=== PATIENT | male | born 1970 | race Caucasian/White ===

== ENCOUNTER 2017-05-18 02:31 | Emergency (ER) | payer OTHER ==
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
[2017-05-18 03:37] VITALS: BP 132/66
== END 2017-05-18 03:37 | disposition home or self-care (01) ==
LOC: ED 02:31
DX: S39.91XA Unspecified injury of abdomen, initial encounter (principal); Y04.0XXA Assault by unarmed brawl or fight, initial encounter; E11.9 Type 2 diabetes mellitus without complications
CPT/HCPCS: 1040M; 99283

== ENCOUNTER 2017-06-06 07:14 | Inpatient (IN) | payer OTHER ==
[2017-06-06] MEDS ORDERED: SODIUM CHLORIDE 0.9% 1,000 ML IV ONE ×5 (07:38→17:19)
[2017-06-06 07:59] LABS: BASOPHILS % (AUTO) 0.3 %; EOSINOPHILS # (AUTO) 0.1 10^3/uL (0.0-0.7); HGB - HEMOGLOBIN 13.8 g/dL (14.0-18.0); LYMPHOCYTES # (AUTO) 1.9 10^3/uL (1.5-3.5); MEAN CORPUSCULAR HEMOGLOBIN 28.6 pg (27.0-31.0); MEAN CORPUSCULAR HGB CONC 34.6 g/dL (32.0-36.0); MEAN CORPUSCULAR VOLUME 82.6 fL (80.0-94.0); MEAN PLATELET VOLUME 8.1 fL (7.4-11.4); MONOCYTES # (AUTO) 0.5 10^3/uL (0.0-1.0); MONOCYTES % (AUTO) 3.8 %; NEUTROPHILS % (AUTO) 79.9 %; RED BLOOD COUNT 4.84 10^6/uL (4.70-6.10); RED CELL DISTRIBUTION WIDTH 13.2 % (12.0-15.0); UNCORRECTED WHITE BLOOD COUNT 12.6 x10^3/uL; WHITE BLOOD COUNT 12.6 x10^3/uL (4.8-10.8)
[2017-06-06 08:08] LABS: ALBUMIN/GLOBULIN RATIO 1.1 (1.0-2.2); BILIRUBIN,TOTAL 0.7 mg/dL (0.2-1.0); CALCIUM 9.9 mg/dL (8.5-10.3); CREATININE 4.5 mg/dL (0.6-1.2); POTASSIUM 3.4 mmol/L (3.5-5.0); TOTAL PROTEIN 8.7 g/dL (6.7-8.2)
--- NOTE | 2017-06-06 08:17 | ED Physician Documentation ---
PD HPI NVD - Stated complaint Stated Complaint: VOMITING - Chief complaint Chief Complaint: General - History obtained from History obtained from: Patient, Family - History of Present Illness Timing - onset: How many days ago (3) Timing - duration: Days (3) Timing - details: Gradual onset, Still present Associated symptoms: Dizzy, Near syncope / syncope Contributing factors: Diabetes Improved by: Vomiting Similar symptoms before: No diagnosis Recently seen: Not recently seen - Additonal information Additional information: 46-year-old male diabetic on insulin pump has developed acute dizziness with vertigo and nausea and vomiting. He has developed a lot of vomiting and is now weak on his feet.He had a similar episode about 2 weeks ago which passed spontaneously. He notes that he has not had any urine output since Friday.He does not have pain and he does not have diarrhea. Review of Systems Constitutional: reports: Fatigue. denies: Fever, Chills, Myalgias Eyes: reports: Other (visual disturbance with the dizziness.). denies: Decreased vision Ears: denies: Ear pain Nose: denies: Rhinorrhea / runny nose, Congestion Throat: reports: Sore throat Cardiac: denies: Palpitations Respiratory: reports: Cough. denies: Dyspnea GI: reports: Nausea, Vomiting. denies: Abdominal Pain, Constipation, Diarrhea : reports: Unable to Void Skin: denies: Rash Musculoskeletal: denies: Neck pain, Back pain, Extremity pain Neurologic: reports: Generalized weakness, Near syncope. denies: Focal weakness , Numbness PD PAST MEDICAL HISTORY - Past Medical History Endocrine/Autoimmune: Type 1 diabetes - Past Surgical History Past Surgical History: Yes General: Hiatal hernia repair HEENT: Myringotomy (tubes), Tonsil/Adenoidectomy - Present Medications Home Medications: Ambulatory Orders Medication Instructions Recorded Confirmed Gabapentin 100 mg PO BID 11/07/15 06/06/17 Aspirin [Aspirin EC] 81 mg PO DAILY 06/06/17 06/06/17 Atorvastatin Calcium 20 mg PO QPM 06/06/17 06/06/17 Insulin Aspart (Vial) [NovoLOG 0 unit SUBQ .INSULINPUMP 06/06/17 06/06/17 (VIAL FOR ED USE)] Levothyroxine Sodium [Synthroid] 200 mcg PO QDAC 06/06/17 06/06/17 Lisinopril [Zestril] 20 mg PO DAILY 06/06/17 06/06/17 - Allergies Allergies/Adverse Reactions: Allergies Allergy/AdvReac Type Severity Reaction Status Date / Time meperidine HCl * Allergy Unknown Verified 05/18/17 02:35 [From Demerol] - Social History Does the pt smoke?: No Smoking Status: Never smoker Does the pt drink ETOH?: No Does the pt have substance abuse?: No - Immunizations Immunizations are current?: Yes - POLST Patient has POLST: No PD ED PE NORMAL - Vitals Vital signs reviewed: Yes (hypotensive) - General General: Alert and oriented X 3, No acute distress, Well developed/nourished - HEENT HEENT: Atraumatic, PERRL, EOMI, Ears normal, Moist mucous membranes, Other ( There are 3 beats of nystagmus to the right and 2 to the left. ) - Neck Neck: Supple, no meningeal sign, No bony TTP - Cardiac Cardiac: RRR, No murmur - Respiratory Respiratory: No respiratory distress, Clear bilaterally - Abdomen Abdomen: Soft, Non tender - Derm Derm: Normal color, Warm and dry, No rash - Extremities Extremities: No deformity, No edema - Neuro Neuro: No motor deficit, No sensory deficit - Psych Psych: Normal mood, Normal affect Results - Vitals Vitals: Vital Signs - 24 hr 06/06/17 06/06/17 06/06/17 07:26 08:31 09:31 Temperature 36.5 C Heart Rate 90 84 82 Heart Rate [ Sitting] Heart Rate [ Standing] Heart Rate [ Supine] Respiratory 16 18 18 Rate Blood Pressure 87/60 L 102/62 93/49 L Blood Pressure [Sitting] Blood Pressure [Standing] Blood Pressure [Supine] O2 Saturation 99 100 98 06/06/17 06/06/17 09:43 10:43 Temperature Heart Rate 72 Heart Rate [ 86 Sitting] Heart Rate [ 98 Standing] Heart Rate [ 82 Supine] Respiratory 18 Rate Blood Pressure 93/55 L Blood Pressure 82/52 L [Sitting] Blood Pressure 67/47 L [Standing] Blood Pressure 95/61 [Supine] O2 Saturation 98 Oxygen O2 Source Room air - EKG (time done) 0748 Rate: Rate (enter#) (85) Rhythm: NSR Ischemia: Normal ST segments Compare to prior EKG: Old EKG unavailable Computer interpretation: Agree with computer - Labs Labs: Laboratory Tests 06/06/17 06/06/17 06/06/17 07:35 07:39 07:39 WBC 12.6 H RBC 4.84 Hgb 13.8 L Hct 40.0 L MCV 82.6 MCH 28.6 MCHC 34.6 RDW 13.2 Plt Count 359 MPV 8.1 Neut # 10.0 H Lymph # 1.9 [place] # 0.5 Eos # 0.1 Baso # 0.0 Absolute Nucleated RBC 0.00 Nucleated RBCs 0.0 Sodium 137 Potassium 3.4 L Chloride 93 L Carbon Dioxide 31 Anion Gap 13.0 BUN 39 H Creatinine 4.5 H Estimated GFR (MDRD) 14 L Glucose 241 H POC Whole Bld Glucose 237 H Glycated Hemoglobin Estim Average Glucose Lactic Acid Calcium 9.9 Phosphorus Magnesium Total Bilirubin 0.7 AST 20 ALT 18 Alkaline Phosphatase 88 Troponin I Total Protein 8.7 H Albumin 4.6 Globulin 4.1 Albumin/Globulin Ratio 1.1 Lipase 10 L Serum Ketones 06/06/17 06/06/17 06/06/17 07:39 07:39 07:39 WBC RBC Hgb Hct MCV MCH MCHC RDW Plt Count MPV Neut # Lymph # [place] # Eos # Baso # Absolute Nucleated RBC Nucleated RBCs Sodium Potassium Chloride Carbon Dioxide Anion Gap BUN Creatinine Estimated GFR (MDRD) Glucose POC Whole Bld Glucose Glycated Hemoglobin 13.4 H Estim Average Glucose 338 H Lactic Acid Calcium Phosphorus Magnesium Total Bilirubin AST ALT Alkaline Phosphatase Troponin I < 0.04 Total Protein Albumin Globulin Albumin/Globulin Ratio Lipase Serum Ketones NEGATIVE 06/06/17 06/06/17 07:39 07:49 WBC RBC Hgb Hct MCV MCH MCHC RDW Plt Count MPV Neut # Lymph # [place] # Eos # Baso # Absolute Nucleated RBC Nucleated RBCs Sodium Potassium Chloride Carbon Dioxide Anion Gap BUN Creatinine Estimated GFR (MDRD) Glucose POC Whole Bld Glucose Glycated Hemoglobin Estim Average Glucose Lactic Acid 2.0 Calcium Phosphorus 3.0 Magnesium 2.1 Total Bilirubin AST ALT Alkaline Phosphatase Troponin I Total Protein Albumin Globulin Albumin/Globulin Ratio Lipase Serum Ketones Procedures - IVC sono (time) 0824 Bedside IVC sono: IVC measures (cm) (1.02), IVC collapsed c insp (cm) (complete) , Dehydration (after one liter bolus) PD MEDICAL DECISION MAKING - ED course Complexity details: reviewed old records, reviewed results, re-evaluated patient , considered differential, d/w patient, d/w family ED course: 46-year-old male with insulin-dependent diabetes mellitus on an insulin pump has developed dehydration and on evaluation of his laboratory studies it does appear he has acute renal failure as well. His numbers do not appear to be just simply dehydration as a result of his diabetes but dehydration as well as renal failure. He has not had any urine output for 2 days. Here in the emergency department he is hydrated and he is admitted to the hospital for further hydration and evaluation of his kidney function. He does not require dialysis at this point. Departure - Departure Disposition: 66 [facility] DC/Xfer Clinical Impression: Dehydration Diabetes mellitus out of control Qualifiers: Diabetes mellitus type: type 2 Diabetes mellitus complication status: with kidney complications Diabetes mellitus complication detail: with other kidney complication Diabetes mellitus assisted insulin use: with admissions nurse use Qualified Code(s): E11.29 - Type 2 diabetes mellitus with other diabetic kidney complication Renal failure, acute Qualifiers: Acute renal failure type: unspecified Qualified Code(s): N17.9 - Acute kidney failure, unspecified Discharge Date/Time: 06/06/17 13:14
[2017-06-06] MEDS ORDERED: MECLIZINE 12.5 MG TABLET PO STA (08:18)
[2017-06-06] MEDS ORDERED: MECLIZINE 12.5 MG TABLET PO ONE (08:23)
[2017-06-06 10:24] LABS: HEMOGLOBIN A1C 1.88 g/dL
[2017-06-06] MEDS ORDERED: HYDROcod/ACETAM 5/325 MG TABLET PO PRN (11:40)
[2017-06-06] MEDS ORDERED: ACETAMINOPHEN 325 MG TABLET PO PRN (11:40)
[2017-06-06] MEDS ORDERED: ONDANSETRON ODT 4 MG TABLET TL PRN (11:40)
[2017-06-06] MEDS ORDERED: SODIUM CHLORIDE FLUSH 0.9% 10 ML SYRINGE IVP PRN (11:40)
[2017-06-06] MEDS ORDERED: PROCHLORPERAZINE 10 MG/2 ML VIAL IVP PRN (11:40)
[2017-06-06 11:44] LABS: MAGNESIUM 2.1 mg/dL (1.7-2.8)
[2017-06-06] MEDS ORDERED: METOCLOPRAMIDE 10 MG/2 ML VIAL IVP PRN (11:49)
[2017-06-06 12:20] LABS: URIC ACID 8.5 mg/dL (2.6-7.2)
[2017-06-06 12:28] LABS: HEMOGLOBIN A1C 1.49 g/dL
[2017-06-06] MEDS: SODIUM CHLORIDE FLUSH 0.9% 10 ML SYRINGE IVP SCH ×2 (13:41→20:02)
[2017-06-06 13:42] LABS: VBG PH 7.374 (7.31-7.41)
[2017-06-06 13:43] LABS: VBG BASE EXCESS -1.4 mmol/L (-2 - +2); VBG TOTAL CO2 25.1 mmol/L (24-29)
[2017-06-06 13:44] LABS: VBG OXYGEN SATURATION 72.4 % (60-80)
[2017-06-06] MEDS: DOXYCYCLINE INJ 100 MG in SODIUM CHLORIDE 0.9% MINIBAG 100 ML IV SCH ×2 (14:12→22:01)
--- NOTE | 2017-06-06 14:12 | HISTORY & PHYSICAL EXAMINATION ---
Chief Complaint - Chief Complaint Chief Complaint: Nausea, vomiting and anurea History of Present Illness - Admitted From Admitted From:: emergency department - History Obtained From Records Reviewed: yes History obtained from: patient Exam Limitations: none - History of Present Illness HPI Comment/Other: Patient is a very pleasant 46-year-old gentleman with a past medical history significant for type I.5 diabetes, Jose's thyroiditis with hypothyroidism, hyperlipidemia and peripheral neuropathy who presents to the emergency department with a chief complaint of nausea, vomiting and anuria. The patient states that symptoms started 2 days ago prior to that he states he was in his normal state of health. He states that 2 days ago he began feeling nauseous and began vomiting. The patient states that since then he's been unable to keep anything down and has had decreased appetite and poor oral intake. The patient states that he also noted that he has voided for the last 2 days. The patient denies any abdominal pain, fevers or chills. He does admit to having cough for the last 2 days but denies any shortness of air, orthopnea, increased lower extremity swelling. The patient admits that about a week ago he noticed a ulcer on his left foot. He states that this is the first time that he's ever noted a blister or ulcer on his foot since being diagnosed with diabetes. He states that initially it was an ulcer just on his fourth toe of the left foot but then he began having ulceration also on the fifth toe. Patient states that he's been placing bandages on the toes. He believes that one of the toes is improving but the other continues to have drainage and erythema. He states that he has peripheral neuropathy and therefore does not have very much sensation in the toes. He denies any fevers or chills. He states previously his diabetes was well controlled however over the last few months he's been having a lot of stress and has not done a very good job with his diabetes. Patient does use a insulin pump and states he changes it every 3 days. The patient denies any history of renal disease. He does state that he was told that he has protein in his urine and that's why he was started on lisinopril but this was years ago. The patient denies any NSAID use or recent antibiotic use. He also denies any new medications. He states that he has not been able to keep his lisinopril down the last 2 days. He denies any headaches, blurred vision, runny nose, sore throat, nasal congestion or chest pain. On presentation to the emergency department the patient was afebrile, was not tachycardic and was not in any respiratory distress however the patient was hypotensive. The patient's blood pressure on presentation was 87/60 and despite fluids remained borderline low. The patient was given 2 L of IV fluid in the emergency department but did not make any urine. The patient's lab test revealed a creatinine of 4.5 with a BUN of only 39. The patient did have a leukocytosis of 12.9. Patient was not acidotic on his VBG, and he was not hyperkalemic and did not appear uremic on presentation. The patient did undergo a renal ultrasound in the emergency department which revealed no renal artery stenosis and no hydronephrosis. The patient was admitted to the [facility] for acute renal failure with anuria. Review of Systems - Other Findings Other Findings: A comprehensive review of systems was performed the pertinent positives and negatives are stated above in the HPI and the remainder of the review of systems is negative. History - Past Medical History Cardiovascular: reports: None Respiratory: reports: None Neuro: reports: None, Peripheral neuropathy Endocrine/Autoimmune: reports: Type 1 diabetes GI: reports: None : reports: None HEENT: reports: None Psych: reports: None Musculoskeletal: reports: None Derm: reports: None MRSA Hx?: No Other Past Medical History: 1. Type I.5 diabetes on an insulin pump. 2. Jose's thyroiditis with hypothyroidism. 3. Peripheral neuropathy. 4. Diabetic foot ulcers. 5. Hyperlipidemia - Past Surgical History General: reports: Hiatal hernia repair Ortho: reports: Rotator cuff repair, Arthroscopic surgery HEENT: reports: Myringotomy (tubes), Tonsil/Adenoidectomy - Family & Social History Family History: Mother: Diabetes, Type 1 (son with diabetes), Father: Alive and Well, Other family: Diabetes, Type 1 Living arrangement: At home Living Situation: With spouse/s.o. Social History Notes: Patient is originally from [facility]. 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 The patient is and lives with his . He has 3 children. Patient does not smoke he does not drink or use any illicit drugs. - Substance History Use: Uses substance without health or social issues: NONE Abuse: Recurrent use of substance despite neg consequences: NONE Dependence: Experiences withdrawal or developed tolerances: NONE - POLST Patient has POLST: No POLST Status: Full Code Meds/Allgy - Home Medications Home Medications: Ambulatory Orders Medication Instructions Recorded Confirmed Gabapentin 100 mg PO BID 11/07/15 06/06/17 Aspirin [Aspirin EC] 81 mg PO DAILY 06/06/17 06/06/17 Atorvastatin Calcium 20 mg PO QPM 06/06/17 06/06/17 Insulin Aspart (Vial) [NovoLOG 0 unit SUBQ .INSULINPUMP 06/06/17 06/06/17 (VIAL FOR ED USE)] Levothyroxine Sodium [Synthroid] 200 mcg PO QDAC 06/06/17 06/06/17 Lisinopril [Zestril] 20 mg PO DAILY 06/06/17 06/06/17 - Allergies Allergies/Adverse Reactions: Allergies Allergy/AdvReac Type Severity Reaction Status Date / Time meperidine HCl * Allergy Unknown Verified 05/18/17 02:35 [From Demerol] Exam - Vital Signs Reviewed Vital Signs: Yes Vital Signs: Vital Signs x48h Temp Pulse Pulse Resp BP BP Pulse Ox 06/06/17 13:24 36.7 C 84 16 101/68 99 06/06/17 11:49 74 10 L 97/56 L - Physical Exam General Appearance: positive: No acute distress, Alert Eyes Bilateral: positive: Normal inspection, PERRL, EOMI, No lid inflammation, Conjunctivae nml, No scleral icterus ENT: positive: ENT inspection nml, Pharynx nml, Dry mucous membranes. negative : Purulent nasal drainage, Pharyngeal erythema, Oral lesions Neck: positive: Nml inspection, Thyroid nml, No JVD, Trachea midline. negative : Lymphadenopathy (R), Lymphadenopathy (L), Carotid bruit, Tracheal deviation Respiratory: positive: Chest non-tender, No respiratory distress, Breath sounds nml. negative: Wheezes, Rales, Rhonchi Cardiovascular: positive: Regular rate & rhythm, No murmur, No gallop Peripheral Pulses: positive: 2+ Abdomen: positive: Non-tender, No organomegaly, Nml bowel sounds, No distention. negative: Guarding, Rebound, Hepatomegaly Back: positive: Nml inspection. negative: CVA tenderness (R), CVA tenderness (L ) Skin: positive: Color nml, No rash, Dry, Other (erythema, drainage and swelling of the left fourth and fifth toes). negative: Cyanosis, Pallor Extremities: positive: Non-tender, Full ROM, Nml appearance, No pedal edema, Other (Left fifth toe with open ulcer, surrounding erythema and decreased sensation. Left fourth toe with healing ulceration. Healing ulcer of the big toe.) Neurologic/Psychiatric: positive: Oriented x3, CN's nml (2-12), Motor nml, Sensation nml, Mood/affect nml Conclusion/Plan - Problem List (1) Anuria Conclusion/Plan: The patient presented with anuria for 2 days along with nausea, vomiting and poor oral intake. Patient has no known history of renal disease. The patient was hypotensive on presentation with elevated creatinine of 4.5 with no previous baseline creatinine for comparison. After receiving 2 L of fluid in the emergency department the patient did not have any urine output. Patient did not have any hyperkalemia, acidosis, pulmonary edema or uremia. Patient's anuria appears likely to be secondary to acute kidney injury likely secondary to severe dehydration. Plan: We will give patient IV fluids aggressively and continue to monitor for urine output. Renal ultrasound did not reveal any hydronephrosis or any evidence of obstruction. If patient is not make urine in the next [address] a Pierre catheter. If patient is not making urine in the next 24 hours and creatinine continues to be elevated patient will need to be transferred for nephrology consultation. (2) DAGOBERTO (acute kidney injury) Conclusion/Plan: We do not have a baseline creatinine on the patient the patient appears to have acute renal failure. Patient's creatinine on presentation was 4.5. Patient appears to be dehydrated and has been having nausea and vomiting for the last 2 days. The patient also has poor oral intake. This appears to be prerenal azotemia although the patient's BUN is not significantly elevated. Patient is not have any indications for dialysis at this point as he does not have any electrolyte abnormalities, is not acidotic, is not uremic and does not have pulmonary edema. The patient however is anuric which is very concerning however this may just be secondary to severe dehydration. Patient's renal ultrasound did not reveal any renal artery stenosis or hydronephrosis. The patient may have diabetic kidney disease although this does not appear to be chronic kidney disease. There is concern for other acute kidney diseases such as glomerulonephritis, acute tubular necrosis, acute interstitial nephritis. Patient has not been on any recent antibiotics but may of had recent diabetic foot infection and was hypotensive on presentation this could have led to renal failure. Plan: Give IV fluids patient has received 2 L in the emergency department we will give an additional 2 L of bolus and then place him on maintenance fluid. Monitor urine output very closely If patient does not make urine within the next 24 hours he will need transfer for consultation by nephrology. Once patient does make urine we will check urine lites and urine analysis. Avoid all nephrotoxic agents Hold lisinopril (3) Diabetic foot ulcers Conclusion/Plan: Ulcers on the left foot 1st 4th and 5th toes worst on the 5th toes with erythema and swelling but no drainage Given presentation with leukocytosis will treat for infection Start IV Clindamycin and IV Doxycycline to cover for MRSA Consult Wound care Strictly control diabetes Qualifiers: Diabetic foot ulcer location: toe Diabetes mellitus type: type 1 Laterality: left Non-pressure ulcer stage: limited to breakdown of skin Qualified Code(s): E10.621 - Type 1 diabetes mellitus with foot ulcer; L97.521 - Non-pressure chronic ulcer of other part of left foot limited to breakdown of skin (4) Hypokalemia Conclusion/Plan: K down to 3.4 Replace K (5) Intractable nausea and vomiting Conclusion/Plan: Patient has had intractable nausea vomiting for the last 2 days. The source of the nausea vomiting is unclear. The patient does not have any abdominal pain. Patient is not having any fevers or chills. Patient does not have elevated BUN to suggest uremia. Patient does have a mild leukocytosis and may have a viral gastroenteritis. Plan: IV fluids IV antiemetics Electrolyte replacement Qualifiers: Vomiting type: unspecified Qualified Code(s): R11.2 - Nausea with vomiting , unspecified (6) Diabetes mellitus type 1.5, managed as type 1 Conclusion/Plan: Poorly controlled diabetes with multiple complications including neuropathy, possibly renal failure and foot ulcers HbA1C of 13.4 On insulin pump Continue patients home insulin pump SS insulin Monitor blood glucose ACHS DM diet Nutrition consult (7) Peripheral neuropathy Conclusion/Plan: History of diabetic peripheral neuropathy Now has foot ulcers Continue home dose of gabapentin Qualifiers: Peripheral neuropathy type: polyneuropathy associated with underlying disease Qualified Code(s): G63 - Polyneuropathy in diseases classified elsewhere (8) Hypothyroidism Conclusion/Plan: Check TSH Continue home dose of synthroid Qualifiers: Hypothyroidism type: due to Jose's thyroiditis Qualified Code(s): E03.8 - Other specified hypothyroidism; E06.3 - Autoimmune thyroiditis (9) Prophylactic use of low molecular weight heparin for venous thromboembolism Conclusion/Plan: place on Lovenox - Lab Results Lab results reviewed: Yes Fish Bones: 06/06/17 07:39 06/06/17 07:39 Other Lab Results: Laboratory Results WBC 12.6 x10^3/uL (4.8-10.8) H 06/06/17 07:39 RBC 4.84 10^6/uL (4.70-6.10) 06/06/17 07:39 Hgb 13.8 g/dL (14.0-18.0) L 06/06/17 07:39 Hct 40.0 % (42.0-52.0) L 06/06/17 07:39 MCV 82.6 fL (80.0-94.0) 06/06/17 07:39 MCH 28.6 pg (27.0-31.0) 06/06/17 07:39 MCHC 34.6 g/dL (32.0-36.0) 06/06/17 07:39 RDW 13.2 % (12.0-15.0) 06/06/17 07:39 Plt Count 359 10^3/uL (130-450) 06/06/17 07:39 MPV 8.1 fL (7.4-11.4) 06/06/17 07:39 Neut # 10.0 10^3/uL (1.5-6.6) H 06/06/17 07:39 Lymph # 1.9 10^3/uL (1.5-3.5) 06/06/17 07:39 [place] # 0.5 10^3/uL (0.0-1.0) 06/06/17 07:39 Eos # 0.1 10^3/uL (0.0-0.7) 06/06/17 07:39 Baso # 0.0 10^3/uL (0.0-0.1) 06/06/17 07:39 Absolute Nucleated RBC 0.00 x10^3/uL 06/06/17 07:39 Nucleated RBCs 0.0 /100WBC 06/06/17 07:39 VBG pH 7.374 (7.31-7.41) 06/06/17 13:30 VBG pCO2 41.7 mmHg (41-51) 06/06/17 13:30 VBG pO2 37.6 mmHg (25-47) 06/06/17 13:30 VBG HCO3 23.8 mmol/L (23-28) 06/06/17 13:30 VBG Total CO2 25.1 mmol/L (24-29) 06/06/17 13:30 VBG O2 Saturation 72.4 % (60-80) 06/06/17 13:30 VBG Base Excess -1.4 mmol/L (-2 - +2) 06/06/17 13:30 Sodium 137 mmol/L (135-145) 06/06/17 07:39 Potassium 3.4 mmol/L (3.5-5.0) L 06/06/17 07:39 Chloride 93 mmol/L (101-111) L 06/06/17 07:39 Carbon Dioxide 31 mmol/L (21-32) 06/06/17 07:39 Anion Gap 13.0 (6-13) 06/06/17 07:39 BUN 39 mg/dL (6-20) H 06/06/17 07:39 Creatinine 4.5 mg/dL (0.6-1.2) H 06/06/17 07:39 Estimated GFR (MDRD) 14 (>89) L 06/06/17 07:39 Glucose 241 mg/dL (70-100) H 06/06/17 07:39 POC Whole Bld Glucose 95 mg/dL (70 - 100) 06/06/17 13:22 Glycated Hemoglobin 12.8 % (4.6-6.2) H 06/06/17 12:00 Estim Average Glucose 321 (70-100) H 06/06/17 12:00 Lactic Acid 2.0 mmol/L (0.5-2.2) 06/06/17 07:49 Uric Acid 8.5 mg/dL (2.6-7.2) H 06/06/17 12:00 Calcium 9.9 mg/dL (8.5-10.3) 06/06/17 07:39 Phosphorus 3.0 mg/dL (2.5-4.6) 06/06/17 07:39 Magnesium 2.1 mg/dL (1.7-2.8) 06/06/17 07:39 Total Bilirubin 0.7 mg/dL (0.2-1.0) 06/06/17 07:39 AST 20 IU/L (10-42) 06/06/17 07:39 ALT 18 IU/L (10-60) 06/06/17 07:39 Alkaline Phosphatase 88 IU/L (42-121) 06/06/17 07:39 Total Creatine Kinase 140 IU/L (22-269) 06/06/17 12:00 Troponin I < 0.04 ng/mL (<0.49) 06/06/17 07:39 Total Protein 8.7 g/dL (6.7-8.2) H 06/06/17 07:39 Albumin 4.6 g/dL (3.2-5.5) 06/06/17 07:39 Globulin 4.1 g/dL (2.1-4.2) 06/06/17 07:39 Albumin/Globulin Ratio 1.1 (1.0-2.2) 06/06/17 07:39 Lipase 10 U/L (22-51) L 06/06/17 07:39 Serum Ketones NEGATIVE (NEGATIVE) 06/06/17 07:39 - Diagnostic Imaging Results Diagnostic Imaging Results: positive: Prelim report reviewed Diagnostic Imaging Results Comments: Renal Doppler and ultrasound preliminary impression: No evidence of renal artery stenosis No hydronephrosis Issues/Core Measures - Anticipated LOS Anticipated Stay Length: 2 or more midnights - DVT/VTE - Prophylaxis VTE/DVT Prophylaxis med ordered at admit?: Yes
[2017-06-06] MEDS: NS W/20 MEQ KCL 1,000 ML IV SCH ×2 (14:18→16:30)
[2017-06-06] MEDS: CLINDAMYCIN 600 MG/50 ML 50 ML IV SCH ×2 (16:30→21:02)
[2017-06-06 17:32] LABS: ALBUMIN/GLOBULIN RATIO 1.2 (1.0-2.2); BILIRUBIN,TOTAL 0.4 mg/dL (0.2-1.0); BUN - BLOOD UREA NITROGEN 35 mg/dL (6-20); CALCIUM 7.9 mg/dL (8.5-10.3); CARBON DIOXIDE - CO2 27 mmol/L (21-32); CHLORIDE 106 mmol/L (101-111); CREATININE 2.2 mg/dL (0.6-1.2); GFR - MDRD 33 (>89); GLUCOSE 177 mg/dL (70-100); SODIUM 139 mmol/L (135-145); TOTAL PROTEIN 5.9 g/dL (6.7-8.2)
[2017-06-06 17:35] LABS: VBG PH 7.406 (7.31-7.41)
[2017-06-06 17:36] LABS: CALCIUM, IONIZED 1.07 mmol/L (1.15-1.33)
[2017-06-06] MEDS: POTASSIUM CHLOR 10 MEQ/100 ML 100 ML IV SCH ×4 (17:59→21:02)
[2017-06-06] MEDS ORDERED: CALCIUM GLUCONATE 1,000 MG in SODIUM CHLORIDE 0.9% 50 ML IV ONE (18:15)
[2017-06-06 19:06] LABS: BILIRUBIN,URINE NEGATIVE (NEGATIVE); PH,URINE 5.5 PH (5.0-7.5); WBC,URINE 0-3 /HPF (0-3)
[2017-06-06 19:08] LABS: UR CULTURE IF IND NOT INDICATED
--- NOTE | 2017-06-06 19:30 | XRAY Report ---
TWO-VIEW CHEST: 06/06/2017 CLINICAL INDICATION: Leukocytosis, hypotension. FINDINGS: Frontal and lateral views of the chest demonstrate a normal cardiac silhouette. The lungs are clear. No effusion or pneumothorax is present. IMPRESSION: NORMAL CHEST. JOB #: [id number] EXT JOB #:[id number]
[2017-06-06] MEDS: GABAPENTIN 100 MG CAPSULE PO SCH (20:02)
[2017-06-06] MEDS: BENZOCAINE/MENTHOL LOZENGE MM PRN (20:25)
[2017-06-06] MEDS ORDERED: ATORVASTATIN 10 MG TABLET PO SCH (21:00)
[2017-06-07] MEDS: BENZOCAINE/MENTHOL LOZENGE MM PRN (00:09)
[2017-06-07] MEDS: NS W/20 MEQ KCL 1,000 ML IV SCH ×2 (01:24→10:01)
[2017-06-07] MEDS: SODIUM CHLORIDE FLUSH 0.9% 10 ML SYRINGE IVP SCH (05:37)
[2017-06-07] MEDS: CLINDAMYCIN 600 MG/50 ML 50 ML IV SCH (06:09)
[2017-06-07 06:40] LABS: BASOPHILS % (AUTO) 0.5 %; EOSINOPHILS # (AUTO) 0.2 10^3/uL (0.0-0.7); EOSINOPHILS % (AUTO) 2.2 %; HCT - HEMATOCRIT 33.2 % (42.0-52.0); HGB - HEMOGLOBIN 11.5 g/dL (14.0-18.0); LYMPHOCYTES # (AUTO) 2.6 10^3/uL (1.5-3.5); LYMPHOCYTES % (AUTO) 35.1 %; MEAN CORPUSCULAR HEMOGLOBIN 29.3 pg (27.0-31.0); MEAN CORPUSCULAR HGB CONC 34.8 g/dL (32.0-36.0); MEAN CORPUSCULAR VOLUME 84.2 fL (80.0-94.0); MEAN PLATELET VOLUME 8.1 fL (7.4-11.4); MONOCYTES # (AUTO) 0.4 10^3/uL (0.0-1.0); MONOCYTES % (AUTO) 5.2 %; NEUTROPHILS # (AUTO) 4.1 10^3/uL (1.5-6.6); RED BLOOD COUNT 3.94 10^6/uL (4.70-6.10); RED CELL DISTRIBUTION WIDTH 12.8 % (12.0-15.0); UNCORRECTED WHITE BLOOD COUNT 7.3 x10^3/uL; WHITE BLOOD COUNT 7.3 x10^3/uL (4.8-10.8)
[2017-06-07 06:58] LABS: ALBUMIN/GLOBULIN RATIO 1.1 (1.0-2.2); BILIRUBIN,TOTAL 0.5 mg/dL (0.2-1.0); CALCIUM 8.2 mg/dL (8.5-10.3); CREATININE 1.3 mg/dL (0.6-1.2); MAGNESIUM 1.7 mg/dL (1.7-2.8); PHOSPHORUS 2.7 mg/dL (2.5-4.6); POTASSIUM 3.5 mmol/L (3.5-5.0); TOTAL PROTEIN 5.9 g/dL (6.7-8.2)
[2017-06-07] MEDS ORDERED: LEVOTHYROXINE 100 MCG TABLET PO SCH (07:00)
[2017-06-07] MEDS ORDERED: LEVOTHYROXINE 25 MCG TABLET PO SCH (07:00)
[2017-06-07] MEDS ORDERED: PANTOPRAZOLE 40 MG TABLET PO SCH (07:00)
[2017-06-07 08:13] VITALS: BP 122/78
[2017-06-07] MEDS: DOXYCYCLINE INJ 100 MG in SODIUM CHLORIDE 0.9% MINIBAG 100 ML IV SCH (08:23)
[2017-06-07] MEDS: GABAPENTIN 100 MG CAPSULE PO SCH (08:23)
[2017-06-07] MEDS ORDERED: POLYETHYLENE GLYCOL 3350 17 GM PACKET PO SCH (09:00)
[2017-06-07] MEDS ORDERED: ASPIRIN EC 81 MG TABLET PO SCH ×2 (09:00)
[2017-06-07] MEDS ORDERED: SENNA 8.6 MG TABLET PO SCH (09:00)
[2017-06-07] MEDS ORDERED: DOCUSATE SODIUM 250 MG CAPSULE PO SCH (09:00)
[2017-06-07] MEDS ORDERED: ENOXAPARIN 40 MG/0.4 ML SYRINGE SUBQ SCH (09:00)
--- NOTE | 2017-06-07 09:36 | Discharge Plan ---
Discharge Plan Disposition: Home, Self Care Condition: Good Prescriptions: Ondansetron Odt [Zofran Odt] 4 mg TL Q6HR PRN #20 tablet PRN Reason: Nausea / Vomiting Clindamycin [Cleocin] 300 mg PO Q6H #48 capsule Doxycycline Hyclate 100 mg PO BID #12 tablet Diet: Diabetic Activity Restrictions: No Restrictions Shower Restrictions: No Driving Restrictions: No Weight Bearing: Full Weight Additional Instructions or Follow Up instructions: You presented to the hospital with 2 days of vomiting and no urine output. It appears that you were very dehydrated and had renal failure. You have recovered well with IV fluids and your kidney function is back to normal. We believe that you were nauseated and vomiting either due to a gastroenteritis which seems to be resolving or due to gastroparesis for which you need to do a better job controlling your diabetes. I have prescribed you zofran if you have any further vomiting. Make sure to keep hydrated. You were also found to have have ulcer on your left foot. This is a sign that your diabetes is not well controlled. Again we need you to work on better controlling your diabetes. The ulcers seemed to be mildly infected and therefore I have prescribed you a week work of antibiotics that you need to complete. I would recommend that you follow up with your PCP, control cabinet assembler and see a cattle and wheat farmer or wound care regarding your foot. No Smoking: If you smoke, Please STOP! Call for help.
--- NOTE | 2017-06-07 10:18 | DISCHARGE SUMMARY ---
Discharge Summary Admit Date: 06/06/17 Discharge Date: 06/07/17 Discharging Provider: Dyllan Boogie MD Primary Care Provider: Jordyn Rosas MD Code Status: Attempt Resuscitation Condition at Discharge: Good Discharge Disposition: 01 Home, Self Care - DIAGNOSES Admission Diagnoses: 1. Anuria 2. Acute Kidney Injury 3. Diabetic Foot Ulcers 4. Hypokalemia 5. Intractable nausea and vomiting 6. Diabetes Mellitus type 1.5, managed as type 1 7. Peripheral Neuropathy 8. Hypothyroidism 9. Prophylactic Use of low molecular therese heparin for venous thromboembolism Discharge Diagnoses with Status of Each Condition: 1. Anuria - resolved 2. Acute Kidney Injury - resolved 3. Diabetic Foot Ulcers - being treated stable 4. Hypokalemia - resolved 5. Intractable nausea and vomiting - resolved 6. Diabetes Mellitus type 1.5, managed as type 1 - uncontrolled 7. Peripheral Neuropathy - stable 8. Hypothyroidism - stable 9. Prophylactic Use of low molecular therese heparin for venous thromboembolism - stable - HPI History of Present Illness: Patient is a very pleasant 46-year-old gentleman with a past medical history significant for type I.5 diabetes, Jose's thyroiditis with hypothyroidism, hyperlipidemia and peripheral neuropathy who presents to the emergency department with a chief complaint of nausea, vomiting and anuria. The patient states that symptoms started 2 days ago prior to that he states he was in his normal state of health. He states that 2 days ago he began feeling nauseous and began vomiting. The patient states that since then he's been unable to keep anything down and has had decreased appetite and poor oral intake. The patient states that he also noted that he has voided for the last 2 days. The patient denies any abdominal pain, fevers or chills. He does admit to having cough for the last 2 days but denies any shortness of air, orthopnea, increased lower extremity swelling. The patient admits that about a week ago he noticed a ulcer on his left foot. He states that this is the first time that he's ever noted a blister or ulcer on his foot since being diagnosed with diabetes. He states that initially it was an ulcer just on his fourth toe of the left foot but then he began having ulceration also on the fifth toe. Patient states that he's been placing bandages on the toes. He believes that one of the toes is improving but the other continues to have drainage and erythema. He states that he has peripheral neuropathy and therefore does not have very much sensation in the toes. He denies any fevers or chills. He states previously his diabetes was well controlled however over the last few months he's been having a lot of stress and has not done a very good job with his diabetes. Patient does use a insulin pump and states he changes it every 3 days. The patient denies any history of renal disease. He does state that he was told that he has protein in his urine and that's why he was started on lisinopril but this was years ago. The patient denies any NSAID use or recent antibiotic use. He also denies any new medications. He states that he has not been able to keep his lisinopril down the last 2 days. He denies any headaches, blurred vision, runny nose, sore throat, nasal congestion or chest pain. On presentation to the emergency department the patient was afebrile, was not tachycardic and was not in any respiratory distress however the patient was hypotensive. The patient's blood pressure on presentation was 87/60 and despite fluids remained borderline low. The patient was given 2 L of IV fluid in the emergency department but did not make any urine. The patient's lab test revealed a creatinine of 4.5 with a BUN of only 39. The patient did have a leukocytosis of 12.9. Patient was not acidotic on his VBG, and he was not hyperkalemic and did not appear uremic on presentation. The patient did undergo a renal ultrasound in the emergency department which revealed no renal artery stenosis and no hydronephrosis. The patient was admitted to the [facility] for acute renal failure with anuria. - HOSPITAL COURSE Hospital Course: 1) Anuria The patient presented with anuria for 2 days along with nausea, vomiting and poor oral intake. Patient has no known history of renal disease. The patient was hypotensive on presentation with elevated creatinine of 4.5 with no previous baseline creatinine for comparison. Renal ultrasound did not reveal any hydronephrosis or any evidence of obstruction. Was likely secondary to severe dehydration from nausea and vomiting, hypotension and renal failure Anuria resolved after 4L of IVF and patient now has good urine output (2) DAGOBERTO (acute kidney injury) We do not have a baseline creatinine on the patient the patient appears to have acute renal failure. Patient's creatinine on presentation was 4.5. Patient's renal ultrasound did not reveal any renal artery stenosis or hydronephrosis. Was secondary to severe dehydration and hypotension from nausea and vomiting Resolved with IVFs and holding lisinopril Frame Changer at discharge was 1.3 and patient had good urine output, was tolerating PO intake without nausea (3) Diabetic foot ulcers Ulcers on the left foot 1st 4th and 5th toes worst on the 5th toes with elevated WBC, erythema and swelling but no drainage Treated with IV clinda and doxycycline in the hospital Improved with WBC down to 7.3 Discharged home on PO clinda and doxycycline for total of 7 days of treatment Patient needs to follow up with wound care and needs to more tightly control diabetes (4) Hypokalemia Resolved with potassium supplementation was due to vomiting (5) Intractable nausea and vomiting Was likely from gastroenteritis or gastroparesis Resolved with antiemetics and fluids Patient discharged home with zofran Needs to better control diabetes if symptoms persist needs to follow up with PCP for workup for gastroparesis (6) Diabetes mellitus type 1.5, managed as type 1 Poorly controlled diabetes with multiple complications including neuropathy and foot ulcers HbA1C of 13.4 Patient given extensive counselling on need for better control Patient identified stress as the cause for poor control Blood sugars were well controlled while patient was hospitalized on same insulin pump dosage as he is on at home makes one wonder about compliance with diet Nutrition was consulted and patient stated he had a unit educator at [facility] [employer] and would follow up with her Continued on insulin pump Needs to follow up with shove up and PCP (7) Peripheral neuropathy Has developed foot ulcers Continued gabapentin Needs better control of diabetes (8) Hypothyroidism Stable continued on home dose of synthroid Patients renal failure and anuria resolved with IV fluids. His nausea and vomiting resolved after getting antiemetics. The patient was tolerating a diabetic diet without any nausea prior to discharge. Patient felt much better before discharge. We treated patients foot ulcer which appeared mildly infected with clindamycin and doxycycline which the patient will continue for 1 week. The patient will follow up with his PCP in the next week for his diabetes and foot ulcers. The patient can restart his lisinopril at discharge. - ALLERGIES Allergies/Adverse Reactions: Allergies Allergy/AdvReac Type Severity Reaction Status Date / Time meperidine HCl * Allergy Unknown Verified 05/18/17 02:35 [From Demerol] - MEDICATIONS Home Medications: Ambulatory Orders Medication Instructions Recorded Confirmed Gabapentin 100 mg PO BID 11/07/15 06/06/17 Aspirin [Aspirin EC] 81 mg PO DAILY 06/06/17 06/06/17 Atorvastatin Calcium 20 mg PO QPM 06/06/17 06/06/17 Insulin Aspart (Vial) [NovoLOG 0 unit SUBQ .INSULINPUMP 06/06/17 06/06/17 (VIAL FOR ED USE)] Levothyroxine Sodium [Synthroid] 200 mcg PO QDAC 06/06/17 06/06/17 Lisinopril [Zestril] 20 mg PO DAILY 06/06/17 06/06/17 Clindamycin [Cleocin] 300 mg PO Q6H #48 capsule 06/07/17 Doxycycline Hyclate 100 mg PO BID #12 tablet 06/07/17 Ondansetron Odt [Zofran Odt] 4 mg TL Q6HR PRN #20 tablet 06/07/17 - PHYSICAL EXAM AT DISCHARGE General Appearance: positive: No acute distress, Alert Eyes Bilateral: positive: Normal inspection, PERRL, EOMI, No lid inflammation, Conjunctivae nml, No scleral icterus ENT: positive: ENT inspection nml, Pharynx nml, No signs of dehydration. negative: Purulent nasal drainage, Pharyngeal erythema, Oral lesions Neck: positive: Nml inspection, Thyroid nml, No JVD, Trachea midline. negative : Thyromegaly, Lymphadenopathy (R), Lymphadenopathy (L), Carotid bruit, Tracheal deviation Respiratory: positive: Chest non-tender, No respiratory distress, Breath sounds nml. negative: Wheezes, Rales, Rhonchi Cardiovascular: positive: Regular rate & rhythm, No murmur, No gallop Peripheral Pulses: positive: 2+ Abdomen: positive: Non-tender, No organomegaly, Nml bowel sounds, No distention. negative: Guarding, Rebound, Hepatomegaly Back: positive: Nml inspection. negative: CVA tenderness (R), CVA tenderness (L ) Skin: positive: Color nml, No rash, Warm. negative: Cyanosis, Pallor Extremities: positive: Non-tender, Full ROM, Nml appearance, No pedal edema. negative: Joint swelling Neurologic/Psychiatric: positive: Oriented x3, CN's nml (2-12), Motor nml, Sensation nml, Mood/affect nml - LABS Result Diagrams: 06/07/17 06:03 06/07/17 06:03 Other Lab Results: Laboratory Results WBC 7.3 x10^3/uL (4.8-10.8) 06/07/17 06:03 RBC 3.94 10^6/uL (4.70-6.10) L 06/07/17 06:03 Hgb 11.5 g/dL (14.0-18.0) L 06/07/17 06:03 Hct 33.2 % (42.0-52.0) L 06/07/17 06:03 MCV 84.2 fL (80.0-94.0) 06/07/17 06:03 MCH 29.3 pg (27.0-31.0) 06/07/17 06:03 MCHC 34.8 g/dL (32.0-36.0) 06/07/17 06:03 RDW 12.8 % (12.0-15.0) 06/07/17 06:03 Plt Count 229 10^3/uL (130-450) 06/07/17 06:03 MPV 8.1 fL (7.4-11.4) 06/07/17 06:03 Neut # 4.1 10^3/uL (1.5-6.6) 06/07/17 06:03 Lymph # 2.6 10^3/uL (1.5-3.5) 06/07/17 06:03 [place] # 0.4 10^3/uL (0.0-1.0) 06/07/17 06:03 Eos # 0.2 10^3/uL (0.0-0.7) 06/07/17 06:03 Baso # 0.0 10^3/uL (0.0-0.1) 06/07/17 06:03 Absolute Nucleated RBC 0.00 x10^3/uL 06/07/17 06:03 Nucleated RBCs 0.0 /100WBC 06/07/17 06:03 VBG pH 7.406 (7.31-7.41) 06/06/17 17:10 VBG pCO2 41.7 mmHg (41-51) 06/06/17 13:30 VBG pO2 37.6 mmHg (25-47) 06/06/17 13:30 VBG HCO3 23.8 mmol/L (23-28) 06/06/17 13:30 VBG Total CO2 25.1 mmol/L (24-29) 06/06/17 13:30 VBG O2 Saturation 72.4 % (60-80) 06/06/17 13:30 VBG Base Excess -1.4 mmol/L (-2 - +2) 06/06/17 13:30 Ionized Calcium 1.07 mmol/L (1.15-1.33) L 06/06/17 17:10 Sodium 143 mmol/L (135-145) 06/07/17 06:03 Potassium 3.5 mmol/L (3.5-5.0) 06/07/17 06:03 Chloride 109 mmol/L (101-111) 06/07/17 06:03 Carbon Dioxide 26 mmol/L (21-32) 06/07/17 06:03 Anion Gap 8.0 (6-13) 06/07/17 06:03 BUN 23 mg/dL (6-20) H 06/07/17 06:03 Creatinine 1.3 mg/dL (0.6-1.2) H 06/07/17 06:03 Estimated GFR (MDRD) 60 (>89) L 06/07/17 06:03 Glucose 74 mg/dL (70-100) 06/07/17 06:03 POC Whole Bld Glucose 107 mg/dL (70 - 100) H 06/06/17 21:14 Glycated Hemoglobin 12.8 % (4.6-6.2) H 06/06/17 12:00 Estim Average Glucose 321 (70-100) H 06/06/17 12:00 Lactic Acid 2.0 mmol/L (0.5-2.2) 06/06/17 07:49 Uric Acid 8.5 mg/dL (2.6-7.2) H 06/06/17 12:00 Calcium 8.2 mg/dL (8.5-10.3) L 06/07/17 06:03 Ionized Calcium YES 06/06/17 17:10 Phosphorus 2.7 mg/dL (2.5-4.6) 06/07/17 06:03 Magnesium 1.7 mg/dL (1.7-2.8) 06/07/17 06:03 Total Bilirubin 0.5 mg/dL (0.2-1.0) 06/07/17 06:03 AST 17 IU/L (10-42) 06/07/17 06:03 ALT 14 IU/L (10-60) 06/07/17 06:03 Alkaline Phosphatase 63 IU/L (42-121) 06/07/17 06:03 Total Creatine Kinase 140 IU/L (22-269) 06/06/17 12:00 Troponin I < 0.04 ng/mL (<0.49) 06/06/17 07:39 Total Protein 5.9 g/dL (6.7-8.2) L 06/07/17 06:03 Albumin 3.1 g/dL (3.2-5.5) L 06/07/17 06:03 Globulin 2.8 g/dL (2.1-4.2) 06/07/17 06:03 Albumin/Globulin Ratio 1.1 (1.0-2.2) 06/07/17 06:03 Lipase 10 U/L (22-51) L 06/06/17 07:39 Urine Color YELLOW 06/06/17 18:34 Urine Clarity CLEAR (CLEAR) 06/06/17 18:34 Urine pH 5.5 PH (5.0-7.5) 06/06/17 18:34 Ur Specific [place] >=1.030 (1.002-1.030) H 06/06/17 18:34 Urine Protein NEGATIVE mg/dL (NEGATIVE) 06/06/17 18:34 Urine Glucose (UA) 100 mg/dL (NEGATIVE) H 06/06/17 18:34 Urine Ketones TRACE mg/dL (NEGATIVE) 06/06/17 18:34 Urine Occult Blood NEGATIVE (NEGATIVE) 06/06/17 18:34 Urine Nitrite NEGATIVE (NEGATIVE) 06/06/17 18:34 Urine Bilirubin NEGATIVE (NEGATIVE) 06/06/17 18:34 Urine Urobilinogen 0.2 (NORMAL) E.U./dL (NORMAL) 06/06/17 18:34 Ur Leukocyte Esterase NEGATIVE (NEGATIVE) 06/06/17 18:34 Urine RBC 0-5 /HPF (0-5) 06/06/17 18:34 Urine WBC 0-3 /HPF (0-3) 06/06/17 18:34 Ur Squamous Epith Cells NONE SEEN (<= Few) 06/06/17 18:34 Urine Bacteria Rare /HPF (None Seen) 06/06/17 18:34 Urine Casts 11-25 Hyaline Casts /LPF 06/06/17 18:34 Ur Microscopic Review Cancelled 06/06/17 18:34 Urine Culture Comments NOT INDICATED 06/06/17 18:34 Ur Random Chloride < 14 mmol/L 06/06/17 18:34 Urine Creatinine 768.3 mg/dL 06/06/17 18:34 Ur Total Protein Timed 35 mg/dL 06/06/17 18:34 Protein/Creatinin Ratio 0.0 (<=0.2) 06/06/17 18:34 Urine Sodium 25.0 mmol/L 06/06/17 18:34 Serum Ketones NEGATIVE (NEGATIVE) 06/06/17 07:39 - DIAGNOSTIC IMAGING Diagnostic Imaging Results: Final report reviewed Diagnostic Imaging Results Comments: Chest Xray: Normal chest Renal Ultrasound: No renal artery stenosis No hydronephrosis - FOLLOW UP Follow Up: Patient to follow up with PCP in one week for management of diabetes and foot ulcer. Need to see unit educator at the [facility] and shove up as well as wound care or podiatry for foot ulcers. Patient will follow with PCP if nausea and vomiting returns. Prescribed zofran as needed for nausea and clinda and doxycycline for infected diabetic foot ulcer.
--- NOTE | 2017-06-09 08:24 | Ultrasound Report ---
RENAL ARTERY DUPLEX: 06/06/2017 CLINICAL INDICATION: No urine output, elevated creatinine. TECHNIQUE: Real-time sonographic vascular imaging was performed by the early head start teacher through the renal arteries utilizing both color-flow and Doppler flow analysis. Multiple customer operations representative static images were saved for review. RT KIDNEY LT KIDNEY Size: 11.3 x 5.5 x 5.3 cm Size: 12.6 x 5.8 x 6.4 cm SEGMENTAL ARTERY SEGMENTAL ARTERY PSV RI PSV RI Upper Pole 34/11 0.68 Upper Pole 43.12 0.72 Mid Pole 49/17 0.65 Mid Pole 52/19 0.63 Lower Pole 32/12 0.63 Lower Pole 26/9 0.65 RIGHT RENAL ARTERY LEFT RENAL ARTERY PSV RA/AO PSV RA/AO Origin: 71/25 0.7 Origin: 69/23 0.68 Proximal: 75/26 0.74 Proximal: 82/27 0.81 Mid: --- --- Mid: 51/20 0.5 Distal: 70/26 0.69 Distal: 85/30 0.84 PROX AORTA PSV: 101 RRV patent Yes X No LRV patent Yes X No CRITERIA FOR CLASSIFICATION OF RENAL ARTERY DISEASE BY DUPLEX SCANNING RENAL ARTERY DIAMETER REDUCTION RENAL ARTERY PSV RAR Normal < 180 cm/sec <3.5 < 60 % >180 cm/sec <3.5 < 60 % >180 cm/sec <3.5 Occlusion (100)% No signal No signal FINDINGS: Right: The right kidney measures 11.3 x 5.5 x 5.3 cm. Resistive indices are normal. The mid portion of the right renal artery is obscured by bowel gas. The origin, proximal, and distal portions are unremarkable, with normal velocities and ratios. Left: The left kidney measures 12.6 x 6.4 x 5.8 cm. Resistive indices are normal. The left renal artery is well seen throughout its length. Velocities and ratios are normal. IMPRESSION: NO EVIDENCE OF A HEMODYNAMICALLY SIGNIFICANT RENAL ARTERY STENOSIS. NO HYDRONEPHROSIS. MTDD
== END 2017-06-07 10:43 | disposition home or self-care (01) | DRG 683 ==
LOC: ED 07:14 → MS 11:40
PROVIDERS: ADMIT Internal Medicine; ATTEND Internal Medicine
DX: R34 Anuria and oliguria (principal); N17.9 Acute kidney failure, unspecified; E86.0 Dehydration; E13.621 Other specified diabetes mellitus with foot ulcer; L97.521 Non-pressure chronic ulcer of other part of left foot limited to breakdown of skin; E13.42 Other specified diabetes mellitus with diabetic polyneuropathy; E13.65 Other specified diabetes mellitus with hyperglycemia; Z96.41 Presence of insulin pump (external) (internal); Z79.4 Long term (current) use of insulin; E87.6 Hypokalemia; I95.9 Hypotension, unspecified; R11.2 Nausea with vomiting, unspecified; K52.9 Noninfective gastroenteritis and colitis, unspecified; E13.43 Other specified diabetes mellitus with diabetic autonomic (poly)neuropathy; K31.84 Gastroparesis; E06.3 Autoimmune thyroiditis; E78.5 Hyperlipidemia, unspecified; Z79.899 Other long term (current) drug therapy
CPT/HCPCS: 36415; 51798; 71020; 80053; 81001; 81003; 82009; 82330; 82550; 82570; 82803; 83036; 83605; 83690; 83735; 84100; 84156; 84300; 84484; 84550; 85025; 87086; 93005; 93975; 96360; 96361; 99284; 99285

== ENCOUNTER 2017-10-14 21:32 | Outpatient (CLI) | payer OTHER | END 2017-10-14 21:33 | disposition critical access hospital (66) | LOC: EMS 21:32 | PROVIDERS: ATTEND Surgery | DX: R42 Dizziness and giddiness (principal); R11.10 Vomiting, unspecified | CPT/HCPCS: A0425; A0427 ==

== ENCOUNTER 2017-10-14 21:50 | Emergency (ER) | payer OTHER ==
[2017-10-14] MEDS ORDERED: SODIUM CHLORIDE 0.9% 1,000 ML IV ONE (22:05)
--- NOTE | 2017-10-14 22:22 | ED Physician Documentation ---
History of Present Illness - Stated complaint Stated Complaint: DIZZINESS, VERTIGO - Chief complaint Chief Complaint: General - History obtained from History obtained from: Patient, Family, EMS - History of Present Illness Timing: Other (46-year-old gentleman with long-standing history of type I 0.5 diabetes mellitus type 1 presents with acute onset dizziness, some elements of both spinning and lightheadedness. It started a few hours ago. His blood sugars were high today and he took an extra bolus of insulin via the pump. He feels okay now, his blood sugar in route was 130. But he was hypotensive in route and on arrival here, however on my exam his blood pressure is 101/56. He had received 1 L of IV fluids at that point. He has similar presentation recently, at which time he had acute renal failure. However unlike that episode he says he has been urinating normally over the last few days.) Review of Systems Ten Systems: 10 systems reviewed and negative Constitutional: denies: Fever, Chills, Fatigue Ears: reports: Tinnitus/ringing (chronic) Nose: denies: Rhinorrhea / runny nose, Congestion Cardiac: denies: Chest pain / pressure, Palpitations Respiratory: denies: Dyspnea, Cough GI: reports: Nausea, Vomiting (once). denies: Abdominal Pain PD PAST MEDICAL HISTORY - Past Medical History Cardiovascular: None Respiratory: None Neuro: None, Peripheral neuropathy Endocrine/Autoimmune: Type 1 diabetes GI: None : None HEENT: None Psych: None Musculoskeletal: None Derm: None - Past Surgical History Past Surgical History: Yes General: Hiatal hernia repair Ortho: Rotator cuff repair, Arthroscopic surgery HEENT: Myringotomy (tubes), Tonsil/Adenoidectomy - Present Medications Home Medications: Ambulatory Orders Medication Instructions Recorded Confirmed Gabapentin 100 mg PO BID 11/07/15 06/06/17 Aspirin [Aspirin EC] 81 mg PO DAILY 06/06/17 06/06/17 Atorvastatin Calcium 20 mg PO QPM 06/06/17 06/06/17 Insulin Aspart (Vial) [NovoLOG 0 unit SUBQ .INSULINPUMP 06/06/17 06/06/17 (VIAL FOR ED USE)] Levothyroxine Sodium [Synthroid] 200 mcg PO QDAC 06/06/17 06/06/17 Lisinopril [Zestril] 20 mg PO DAILY 06/06/17 06/06/17 Clindamycin [Cleocin] 300 mg PO Q6H #48 capsule 06/07/17 Doxycycline Hyclate 100 mg PO BID #12 tablet 06/07/17 Ondansetron Odt [Zofran Odt] 4 mg TL Q6HR PRN #20 tablet 06/07/17 - Allergies Allergies/Adverse Reactions: Allergies Allergy/AdvReac Type Severity Reaction Status Date / Time meperidine HCl * Allergy Unknown Verified 10/14/17 21:56 [From Demerol] - Social History Does the pt smoke?: No Smoking Status: Never smoker Does the pt drink ETOH?: No Does the pt have substance abuse?: No - Immunizations Immunizations are current?: Yes - POLST Patient has POLST: No POLST Status: Full Code PD ED PE NORMAL - Vitals Vital signs reviewed: Yes - General General: Alert and oriented X 3, No acute distress - HEENT HEENT: PERRL, EOMI - Neck Neck: Supple, no meningeal sign, No bony TTP - Cardiac Cardiac: RRR, No murmur - Respiratory Respiratory: No respiratory distress, Clear bilaterally - Abdomen Abdomen: Normal bowel sounds, Soft, Non tender - Back Back: No CVA TTP, No spinal TTP - Derm Derm: Normal color, Warm and dry - Extremities Extremities: No edema, No calf tenderness / cord - Neuro Neuro: Alert and oriented X 3, Normal speech, Other (NIHSS zero) Eye Opening: Spontaneous Motor: Obeys Commands Verbal: Oriented GCS Score: 15 - Psych Psych: Normal mood, Normal affect Results - Vitals Vitals: Vital Signs - 24 hr 10/14/17 10/14/17 10/14/17 21:52 22:23 22:44 Temperature 36.4 C L Heart Rate 86 78 85 Respiratory 16 17 17 Rate Blood Pressure 70/54 L 91/52 L 101/52 L O2 Saturation 99 96 98 Oxygen O2 Source Room air - Labs Labs: Laboratory Tests 10/14/17 10/14/17 10/14/17 22:35 22:35 22:35 WBC 9.9 RBC 4.38 L Hgb 12.9 L Hct 36.0 L MCV 82.1 MCH 29.4 MCHC 35.8 RDW 12.8 Plt Count 247 MPV 8.1 Neut # 8.3 H Lymph # 1.1 L [place] # 0.4 Eos # 0.0 Baso # 0.0 Absolute Nucleated RBC 0.00 Nucleated RBC % 0.0 VBG pH VBG pCO2 VBG pO2 VBG HCO3 VBG Total CO2 VBG O2 Saturation VBG Base Excess Sodium 139 Potassium 3.0 L Chloride 102 Carbon Dioxide 24 Anion Gap 13.0 BUN 23 H Creatinine 1.7 H Estimated GFR (MDRD) 44 L Glucose 133 H Lactic Acid 3.5 H* Calcium 9.2 Total Bilirubin 0.5 AST 26 ALT 26 Alkaline Phosphatase 66 Total Protein 6.8 Albumin 3.8 Globulin 3.0 Albumin/Globulin Ratio 1.3 Lipase 20 L 10/14/17 22:35 WBC RBC Hgb Hct MCV MCH MCHC RDW Plt Count MPV Neut # Lymph # [place] # Eos # Baso # Absolute Nucleated RBC Nucleated RBC % VBG pH 7.384 VBG pCO2 40.9 L VBG pO2 51.6 H VBG HCO3 23.9 VBG Total CO2 25.1 VBG O2 Saturation 87.1 H VBG Base Excess -1.1 Sodium Potassium Chloride Carbon Dioxide Anion Gap BUN Creatinine Estimated GFR (MDRD) Glucose Lactic Acid Calcium Total Bilirubin AST ALT Alkaline Phosphatase Total Protein Albumin Globulin Albumin/Globulin Ratio Lipase PD MEDICAL DECISION MAKING - ED course ED course: 46-year-old gentleman with presyncopal episode versus vertigo here. His examination is unremarkable except for hypotension which resolved after IV fluids. He continued to feel fine without evidence of hypoglycemia in the department. His creatinine is 1.7, it was 1.3 on discharge on his last visit and 4.5 on admission at that last visit in May. It seems like this is a similar episode albeit minor to the one he had in May. He received 2 L of IV fluids here. And recheck closely with his doctor for recheck of his renal function was advised. Departure - Departure Disposition: Home, Self Care Clinical Impression: DAGOBERTO (acute kidney injury), Diabetes mellitus type 1.5, managed as type 1 Condition: Good Record reviewed to determine appropriate education?: Yes Comments: Continue your excellent control of your diabetes. Return if worse in any way. Follow-up with your doctor in the next few days for recheck of your kidney function, take the copy of the labs I gave you today with you. If you're having recurrent episodes of dizziness or significantly abnormal blood sugars please return for reevaluation. Forms: Activity restrictions
[2017-10-14 22:45] LABS: BASOPHILS % (AUTO) 0.4 %; EOSINOPHILS % (AUTO) 0.5 %; HGB - HEMOGLOBIN 12.9 g/dL (14.0-18.0); LYMPHOCYTES # (AUTO) 1.1 10^3/uL (1.5-3.5); LYMPHOCYTES % (AUTO) 10.9 %; MEAN CORPUSCULAR HEMOGLOBIN 29.4 pg (27.0-31.0); MEAN CORPUSCULAR HGB CONC 35.8 g/dL (32.0-36.0); MEAN CORPUSCULAR VOLUME 82.1 fL (80.0-94.0); MEAN PLATELET VOLUME 8.1 fL (7.4-11.4); MONOCYTES # (AUTO) 0.4 10^3/uL (0.0-1.0); MONOCYTES % (AUTO) 4.4 %; NEUTROPHILS # (AUTO) 8.3 10^3/uL (1.5-6.6); NEUTROPHILS % (AUTO) 83.8 %; RED BLOOD COUNT 4.38 10^6/uL (4.70-6.10); RED CELL DISTRIBUTION WIDTH 12.8 % (12.0-15.0); UNCORRECTED WHITE BLOOD COUNT 9.9 x10^3/uL; VBG BASE EXCESS -1.1 mmol/L (-2 - +2); VBG OXYGEN SATURATION 87.1 % (60-80); VBG PH 7.384 (7.31-7.41); VBG TOTAL CO2 25.1 mmol/L (24-29); WHITE BLOOD COUNT 9.9 x10^3/uL (4.8-10.8)
[2017-10-14 22:57] LABS: ALBUMIN/GLOBULIN RATIO 1.3 (1.0-2.2); BILIRUBIN,TOTAL 0.5 mg/dL (0.2-1.0); CALCIUM 9.2 mg/dL (8.5-10.3); CREATININE 1.7 mg/dL (0.6-1.2); TOTAL PROTEIN 6.8 g/dL (6.7-8.2)
[2017-10-14 23:37] VITALS: BP 108/58
== END 2017-10-14 23:11 | disposition home or self-care (01) ==
LOC: EDUNIT# → ED 21:50
DX: N17.9 Acute kidney failure, unspecified (principal); E10.42 Type 1 diabetes mellitus with diabetic polyneuropathy; Z79.82 Long term (current) use of aspirin
CPT/HCPCS: 36415; 80053; 82803; 83605; 83690; 85025; 96360; 99283

== ENCOUNTER 2018-11-09 13:11 | Emergency (ER) | payer OTHER ==
[2018-11-09 13:55] LABS: BASOPHILS # (AUTO) 0.1 10^3/uL (0.0-0.1); BASOPHILS % (AUTO) 0.7 %; EOSINOPHILS % (AUTO) 0.6 %; HGB - HEMOGLOBIN 12.6 g/dL (14.0-18.0); LYMPHOCYTES # (AUTO) 0.4 10^3/uL (1.5-3.5); LYMPHOCYTES % (AUTO) 4.5 %; MEAN CORPUSCULAR HEMOGLOBIN 28.9 pg (27.0-31.0); MEAN CORPUSCULAR HGB CONC 35.5 g/dL (32.0-36.0); MEAN CORPUSCULAR VOLUME 81.5 fL (80.0-94.0); MEAN PLATELET VOLUME 7.4 fL (7.4-11.4); MONOCYTES # (AUTO) 0.3 10^3/uL (0.0-1.0); MONOCYTES % (AUTO) 4.3 %; NEUTROPHILS # (AUTO) 7.1 10^3/uL (1.5-6.6); NEUTROPHILS % (AUTO) 89.9 %; PLT - PLATELET COUNT 257 10^3/uL (130-450); RED BLOOD COUNT 4.34 10^6/uL (4.70-6.10); RED CELL DISTRIBUTION WIDTH 12.4 % (12.0-15.0); WHITE BLOOD COUNT 7.9 x10^3/uL (4.8-10.8)
[2018-11-09 14:08] LABS: ALBUMIN 3.8 g/dL (3.2-5.5); BILIRUBIN,TOTAL 1.4 mg/dL (0.2-1.0); CALCIUM 8.4 mg/dL (8.5-10.3); CREATININE 1.2 mg/dL (0.6-1.2); TOTAL PROTEIN 7.8 g/dL (6.7-8.2)
--- NOTE | 2018-11-09 14:50 | ED Physician Documentation ---
PD HPI ABD PAIN - Stated complaint Stated Complaint: FLU LIKE SX - Chief complaint Chief Complaint: Abd Pain - History obtained from History obtained from: Patient - History of Present Illness Timing - onset: Yesterday Timing - duration: Days (2) Timing - details: Abrupt onset, Still present Quality: Cramping, Aching (has cramping mid to lower abd pain, vomiting. Did not take insulin since was not tolerating PO. Sugars were 200s at home.) Location: Other (lower abd) Radiation: No: Lower back, Left flank, Right flank Improved by: No: Vomiting Worsened by: Eating Associated symptoms: Nausea, Vomiting, Constipation (for 2 weeks, but no cramps and passing flatus), Loss of appetite. No: Fever, Diarrhea, Near syncope / syncope, Weight loss Similar symptoms before: Has not had sx before Review of Systems Constitutional: reports: Myalgias. denies: Fever, Chills Nose: denies: Rhinorrhea / runny nose, Congestion Throat: denies: Sore throat Respiratory: denies: Cough GI: reports: Abdominal Pain, Nausea, Vomiting, Constipation. denies: Diarrhea, Hematemesis : denies: Dysuria, Frequency Skin: denies: Rash Musculoskeletal: denies: Neck pain, Back pain Neurologic: reports: Generalized weakness, Headache. denies: Focal weakness, Near syncope, Altered mental status PD PAST MEDICAL HISTORY - Past Medical History Past Medical History: Yes Cardiovascular: None Respiratory: None Endocrine/Autoimmune: Type 1 diabetes GI: None : None HEENT: None Psych: None Musculoskeletal: None Derm: None - Past Surgical History Past Surgical History: Yes General: Hiatal hernia repair Ortho: Rotator cuff repair, Arthroscopic surgery HEENT: Myringotomy (tubes), Tonsil/Adenoidectomy - Present Medications Home Medications: Ambulatory Orders Medication Instructions Recorded Confirmed Gabapentin 100 mg PO BID 11/07/15 06/06/17 Aspirin [Aspirin EC] 81 mg PO DAILY 06/06/17 06/06/17 Atorvastatin Calcium 20 mg PO QPM 06/06/17 06/06/17 Insulin Aspart (Vial) [NovoLOG 0 unit SUBQ .INSULINPUMP 06/06/17 06/06/17 (VIAL FOR ED USE)] Levothyroxine Sodium [Synthroid] 200 mcg PO QDAC 06/06/17 06/06/17 Lisinopril [Zestril] 20 mg PO DAILY 06/06/17 06/06/17 Clindamycin [Cleocin] 300 mg PO Q6H #48 capsule 06/07/17 Doxycycline Hyclate 100 mg PO BID #12 tablet 06/07/17 Ondansetron Odt [Zofran Odt] 4 mg TL Q6HR PRN #20 tablet 06/07/17 Docusate Sodium 100 mg PO DAILY #30 capsule 11/09/18 Ondansetron Odt [Zofran] 4 mg TL Q6H PRN #10 tablet 11/09/18 Tramadol HCl 50 mg PO Q6H PRN #15 tablet 11/09/18 - Allergies Allergies/Adverse Reactions: Allergies Allergy/AdvReac Type Severity Reaction Status Date / Time meperidine HCl * Allergy Unknown Verified 11/09/18 13:25 [From Demerol] - Social History Does the pt smoke?: No Smoking Status: Never smoker Does the pt drink ETOH?: No Does the pt have substance abuse?: No - Immunizations Immunizations are current?: Yes - POLST Patient has POLST: No POLST Status: Full Code PD ED PE NORMAL - Vitals Vital signs reviewed: Yes - General General: Alert and oriented X 3, Well developed/nourished - HEENT HEENT: Ears normal, Pharynx benign. No: Moist mucous membranes - Neck Neck: Supple, no meningeal sign, No adenopathy - Cardiac Cardiac: RRR, No murmur - Respiratory Respiratory: Clear bilaterally - Abdomen Abdomen: Normal bowel sounds, Soft, Non distended, No organomegaly, Other (tender mid to right lower abd.) - Male Male : Deferred - Rectal Rectal: Deferred - Back Back: No CVA TTP - Derm Derm: Normal color, Warm and dry - Neuro Neuro: Alert and oriented X 3, No motor deficit, Normal speech Results - Vitals Vitals: Vital Signs - 24 hr 11/09/18 11/09/18 11/09/18 13:23 18:53 20:24 Temperature 36.8 C 37.2 C Heart Rate 115 H 97 97 Respiratory 14 18 18 Rate Blood Pressure 112/67 121/73 134/82 H O2 Saturation 98 96 96 Oxygen O2 Source Room air - Labs Labs: Laboratory Tests 11/09/18 11/09/18 11/09/18 13:50 13:50 13:50 WBC 7.9 RBC 4.34 L Hgb 12.6 L Hct 35.4 L MCV 81.5 MCH 28.9 MCHC 35.5 RDW 12.4 Plt Count 257 MPV 7.4 Neut # (Auto) 7.1 H Lymph # (Auto) 0.4 L [place] # (Auto) 0.3 Eos # (Auto) 0.0 Baso # (Auto) 0.1 Absolute Nucleated RBC 0.00 Nucleated RBC % 0.0 VBG pH VBG pCO2 VBG pO2 VBG HCO3 VBG Total CO2 VBG O2 Saturation VBG Base Excess Sodium 130 L Potassium 4.2 Chloride 94 L Carbon Dioxide 24 Anion Gap 12.0 BUN 18 Creatinine 1.2 Estimated GFR (MDRD) 65 L Glucose 443 H Calcium 8.4 L Magnesium Total Bilirubin 1.4 H AST 17 ALT 15 Alkaline Phosphatase 80 Total Protein 7.8 Albumin 3.8 Globulin 4.0 Albumin/Globulin Ratio 1.0 Lipase 18 L Urine Color YELLOW Urine Clarity CLEAR Urine pH 6.0 Ur Specific [place] 1.020 Urine Protein TRACE Urine Glucose (UA) 500 H Urine Ketones >=80 H Urine Occult Blood MODERATE H Urine Nitrite NEGATIVE Urine Bilirubin NEGATIVE Urine Urobilinogen 0.2 (NORMAL) Ur Leukocyte Esterase NEGATIVE Urine RBC 0-5 Urine WBC 0-3 Ur Squamous Epith Cells NONE SEEN Urine Bacteria None Seen Ur Microscopic Review INDICATED Urine Culture Comments NOT INDICATED Serum Ketones 11/09/18 11/09/18 15:44 15:44 WBC RBC Hgb Hct MCV MCH MCHC RDW Plt Count MPV Neut # (Auto) Lymph # (Auto) [place] # (Auto) Eos # (Auto) Baso # (Auto) Absolute Nucleated RBC Nucleated RBC % VBG pH 7.549 H VBG pCO2 25.9 L VBG pO2 43.3 VBG HCO3 22.1 L VBG Total CO2 22.9 L VBG O2 Saturation 87.0 H VBG Base Excess 1.0 Sodium Potassium Chloride Carbon Dioxide Anion Gap BUN Creatinine Estimated GFR (MDRD) Glucose Calcium Magnesium 1.5 L Total Bilirubin AST ALT Alkaline Phosphatase Total Protein Albumin Globulin Albumin/Globulin Ratio Lipase Urine Color Urine Clarity Urine pH Ur Specific [place] Urine Protein Urine Glucose (UA) Urine Ketones Urine Occult Blood Urine Nitrite Urine Bilirubin Urine Urobilinogen Ur Leukocyte Esterase Urine RBC Urine WBC Ur Squamous Epith Cells Urine Bacteria Ur Microscopic Review Urine Culture Comments Serum Ketones SMALL H PD MEDICAL DECISION MAKING - ED course Complexity details: reviewed results (normal appendix. Has some colon inflammation. Presume infectious. Labs showing dehydration with some ketosis. But not acidotic. ), re-evaluated patient (he is feeling better enough to go home. Taking PO fluids here okay. I think he will do okay with PO intake and is very good with his diabetes management, now that will be hydrating. ), considered differential (improved symptoms with fluids and meds. In ER long time due to testing and dept flow, IV fluids and meds. ), d/w patient Departure - Departure Disposition: Home, Self Care Clinical Impression: Colitis, acute, Diabetes mellitus type 1.5, managed as type 1 Abdominal pain Qualifiers: Abdominal location: lower abdomen, unspecified Qualified Code(s): R10.30 - Lower abdominal pain, unspecified Nausea and vomiting Qualifiers: Vomiting type: unspecified Vomiting Intractability: non-intractable Qualified Code(s): R11.2 - Nausea with vomiting, unspecified Condition: Stable Record reviewed to determine appropriate education?: Yes Instructions: ED Abdominal Pain Unkn Cause, ED Nausea Vomiting Follow-Up: INOCENTE PALACIO MD [Primary Care Provider] - Prescriptions: Docusate Sodium 100 mg PO DAILY #30 capsule Ondansetron Odt [Zofran] 4 mg TL Q6H PRN #10 tablet PRN Reason: Nausea / Vomiting Tramadol HCl 50 mg PO Q6H PRN #15 tablet PRN Reason: Pain Comments: Drink lots of fluids and bland food. The CT scan showed some inflammation through a segment of the bowel called colitis. This is typically like a viral type illness given your symptoms of nausea and vomiting through the day. Use ondansetron if needed for nausea. Use a stool softener daily for the next several days since he had been constipated prior to this. Recheck if not better over the next day or 2 at most. Return if worse again. Discharge Date/Time: 11/09/18 21:05
[2018-11-09] MEDS ORDERED: SODIUM CHLORIDE 0.9% 1,000 ML IV ONE ×3 (15:25→17:17)
[2018-11-09] MEDS ORDERED: ONDANSETRON 4 MG/2 ML VIAL IVP STA ×2 (15:25→20:03)
[2018-11-09] MEDS ORDERED: KETOROLAC 60 MG/2 ML VIAL IVP STA (15:25)
[2018-11-09 15:44] LABS: BILIRUBIN,URINE NEGATIVE (NEGATIVE); GLUCOSE, URINE (UA) 500 mg/dL (NEGATIVE); KETONES,URINE (UA) >=80 mg/dL (NEGATIVE); LEUKOCYTE ESTERASE, URINE NEGATIVE (NEGATIVE); NITRITE,URINE NEGATIVE (NEGATIVE); OCCULT BLOOD,URINE MODERATE (NEGATIVE); PROTEIN,URINE TRACE mg/dL (NEGATIVE); UROBILINOGEN,URINE 0.2 (NORMAL) E.U./dL (NORMAL)
[2018-11-09 15:45] LABS: CLARITY,URINE CLEAR (CLEAR)
[2018-11-09 15:54] LABS: BACTERIA,URINE None Seen /HPF (None Seen); RBC,URINE 0-5 /HPF (0-5); SQUAMOUS EPITHELIAL CELL,UR NONE SEEN (<= Few)
[2018-11-09 15:55] LABS: VBG PCO2 25.9 mmHg (41-51); VBG PH 7.549 (7.31-7.41); VBG PO2 43.3 mmHg (25-47); VBG TOTAL CO2 22.9 mmol/L (24-29)
[2018-11-09 15:57] LABS: KETONES, SERUM (ACETEST) SMALL (NEGATIVE); MAGNESIUM 1.5 mg/dL (1.7-2.8)
[2018-11-09] MEDS ORDERED: MAGNESIUM SULFATE 2 GRAM 2 GM/50 ML BAG IV ONE (16:01)
[2018-11-09] MEDS ORDERED: INSULIN REGULAR HUMAN 100 UNIT/1 ML 10 ML MDV IVP STA (17:17)
[2018-11-09] MEDS ORDERED: DOCUSATE SODIUM 100 MG CAPSULE PO STA (17:30)
[2018-11-09] MEDS ORDERED: IOVERSOL 320 100 ML VIAL IVP ONE ×2 (17:37→18:11)
--- NOTE | 2018-11-09 18:26 | CT Report ---
Reason: abd pain and vomiting Procedure Date: 11/09/2018 Accession Number: [id number] / [id number] Procedure: CT - Abdomen/Pelvis W/ CPT Code: FULL RESULT: EXAM: CT ABDOMEN AND PELVIS EXAM DATE: 11/09/2018 06:08 PM. CLINICAL HISTORY: Abd pain and vomiting. COMPARISONS: None. TECHNIQUE: Routine helical CT imaging was performed through the abdomen and pelvis. IV contrast: 90 ML OPTIRAY 320. Enteric contrast: No. Reconstructions: Coronal and sagittal. In accordance with CT protocol optimization, one or more of the following dose reduction techniques were utilized for this exam: automated exposure control, adjustment of mA and/or KV based on patient size, or use of iterative reconstructive technique. FINDINGS: Lung Bases: Unremarkable. Liver: Normal. No masses. Gallbladder/Bile Ducts: Unremarkable. Spleen: Normal. Pancreas: Normal. Adrenal Glands: Normal. Kidneys: Normal. No masses or hydronephrosis. Peritoneal Cavity/Bowel: Mild diffuse bowel wall thickening in the colon extending from the mid transverse colon through the proximal descending colon, measuring about 6-7 mm in thickness. No free fluid, free air, lymphadenopathy, or bowel dilation. The appendix is well visualized and normal. Pelvic Organs: Normal. The bladder and visualized pelvic organs are within normal limits. Vasculature: No aneurysms or other significant abnormality. Bones: No significant abnormality. Other: None. IMPRESSION: Mild large bowel wall thickening as described, compatible with an enteritis, infectious versus noninfectious. RADIA
[2018-11-09] MEDS ORDERED: MORPHINE 2 MG/ML CARPUJECT IVP STA (20:03)
[2018-11-09 20:24] VITALS: BP 134/82
[2018-11-09] MEDS ORDERED: ONDANSETRON ODT 4 MG Prepack 2 TL PRN (20:43)
== END 2018-11-09 21:05 | disposition home or self-care (01) ==
LOC: ED 13:11
DX: K52.9 Noninfective gastroenteritis and colitis, unspecified (principal); E86.0 Dehydration; E88.89 Other specified metabolic disorders; E10.9 Type 1 diabetes mellitus without complications; Z79.4 Long term (current) use of insulin; Z79.82 Long term (current) use of aspirin
CPT/HCPCS: 36415; 74177; 80053; 81001; 82009; 82803; 83690; 83735; 85025; 96361; 96365; 96366; 96375; 99283; A9270; J1815; Q9967; 81003; 87086

== ENCOUNTER 2019-02-07 02:04 | Emergency (ER) | payer OTHER ==
[2019-02-07 02:15] VITALS: BP 137/95
--- NOTE | 2019-02-07 02:55 | ED Physician Documentation ---
PD HPI LOWER EXT INJURY - Stated complaint Stated Complaint: R CALF PX - Chief complaint Chief Complaint: Trauma Ext - History obtained from History obtained from: Patient - History of Present Illness PD HPI LOW EXT INJURY LOCATION: Right, Lower leg Type of injury: Other (use) Where injury occurred: Work Timing - onset: Enter time (2029), Yesterday Timing - duration: Hours Timing - details: Abrupt onset, Still present Improved by: Rest, Immobilization Worsened by: Moving, Palpating Associated symptoms: No: Weakness, Numbness, Tingling, Swelling Contributing factors: No: Anticoagulated Similar symptoms before: Has not had sx before Recently seen: Not recently seen - Additional information Additional information: 48-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 He states he was able to continue on with his work and had a second sharp episode of pain with use and has been limping the rest of the shift. He was asked by his superiors to come to the emergency department for evaluation. The patient states that he has not otherwise been ill and he feels like he has pulled a muscle in his calf. Review of Systems Constitutional: denies: Fever, Chills, Myalgias Eyes: denies: Decreased vision Ears: denies: Ear pain Nose: denies: Congestion Throat: denies: Sore throat Cardiac: denies: Chest pain / pressure Respiratory: denies: Dyspnea, Cough GI: denies: Abdominal Pain, Nausea, Vomiting : denies: Dysuria Musculoskeletal: reports: Extremity pain, Pain with weight bearing. denies: Neck pain, Back pain Neurologic: denies: Generalized weakness, Focal weakness, Numbness PD PAST MEDICAL HISTORY - Past Medical History Past Medical History: Yes Cardiovascular: None Respiratory: None Neuro: Other Endocrine/Autoimmune: Type 1 diabetes, HyPOthyroidism GI: None : None HEENT: None Psych: None Musculoskeletal: None Derm: None Other Past Medical History: Neuropathy - Past Surgical History Past Surgical History: Yes General: Hiatal hernia repair Ortho: Rotator cuff repair, Arthroscopic surgery HEENT: Myringotomy (tubes), Tonsil/Adenoidectomy - Present Medications Home Medications: Ambulatory Orders Medication Instructions Recorded Confirmed Gabapentin 100 mg PO BID 11/07/15 02/07/19 Aspirin [Aspirin EC] 81 mg PO DAILY 06/06/17 02/07/19 Atorvastatin Calcium 20 mg PO QPM 06/06/17 02/07/19 Insulin Aspart (Vial) [NovoLOG 0 unit SUBQ .INSULINPUMP 06/06/17 02/07/19 (VIAL FOR ED USE)] Levothyroxine Sodium [Synthroid] 200 mcg PO QDAC 06/06/17 02/07/19 Lisinopril [Zestril] 20 mg PO DAILY 06/06/17 02/07/19 - Allergies Allergies/Adverse Reactions: Allergies Allergy/AdvReac Type Severity Reaction Status Date / Time meperidine HCl * Allergy Unknown Verified 02/07/19 02:28 [From Demerol] - Social History Does the pt smoke?: No Smoking Status: Never smoker Does the pt drink ETOH?: Yes Does the pt have substance abuse?: No - Immunizations Immunizations are current?: Yes - POLST Patient has POLST: No POLST Status: Full Code PD ED PE NORMAL - Vitals Vital signs reviewed: Yes (hypertensive ) - General General: Alert and oriented X 3, No acute distress, Well developed/nourished - HEENT HEENT: Atraumatic, PERRL, EOMI - Respiratory Respiratory: No respiratory distress - Derm Derm: Normal color, Warm and dry, No rash - Extremities Extremities: No deformity, Other (There is trace edema to the calves bilaterally with sock indentation. There is tenderness at the insertion of the Achilles into the gastrocs. There is pain over the gastrocs with plantarflexion of the foot. 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 He is placed into a walking boot and we have given him a note for work for 10 days to restrict activity. Departure - Departure Disposition: 01 Home, Self Care Clinical Impression: Gastrocnemius muscle strain Qualifiers: Encounter type: initial encounter Laterality: right Qualified Code(s): S86.111A - Strain of other muscle(s) and tendon(s) of posterior muscle group at lower leg level, right leg, initial encounter Condition: Stable Instructions: ED Strain Muscle Ext Follow-Up: INOCENTE PALACIO MD [Primary Care Provider] - Forms: Activity restrictions
== END 2019-02-07 03:05 | disposition home or self-care (01) ==
LOC: ED 02:04
DX: S86.111A Strain of other muscle(s) and tendon(s) of posterior muscle group at lower leg level, right leg, initial encounter (principal); X50.9XXA Other and unspecified overexertion or strenuous movements or postures, initial encounter; Y93.01 Activity, walking, marching and hiking; Y92.828 Other wilderness area as the place of occurrence of the external cause; Y99.0 Civilian activity done for income or pay; E23.2 Diabetes insipidus; E03.9 Hypothyroidism, unspecified; Z79.82 Long term (current) use of aspirin
CPT/HCPCS: 1040M; 99283

== ENCOUNTER 2019-02-17 08:42 | Emergency (ER) | payer OTHER ==
[2019-02-17 08:57] VITALS: BP 164/98
--- NOTE | 2019-02-17 09:36 | ED Physician Documentation ---
History of Present Illness - Stated complaint Stated Complaint: WORK CLEARANCE - Chief complaint Chief Complaint: General - History obtained from History obtained from: Patient - History of Present Illness Timing: Today - Additonal information Additional information: 48-year-old male who strained his gastrocnemius muscle 10 days ago wore his walking boot for about 7 days and has not been limping is able to walk without difficulty and is ready to return to work. He has no other specific illness has had a recent checkup by his regular doctor diabetes is under control. Review of Systems Constitutional: denies: Fever Eyes: denies: Decreased vision Ears: denies: Ear pain Nose: denies: Congestion Respiratory: denies: Cough GI: denies: Vomiting Musculoskeletal: denies: Extremity pain, Pain with weight bearing PD PAST MEDICAL HISTORY - Past Medical History Cardiovascular: None Respiratory: None Neuro: Other Endocrine/Autoimmune: Type 1 diabetes, HyPOthyroidism GI: None : None HEENT: None Psych: None Musculoskeletal: None Derm: None - Past Surgical History Past Surgical History: Yes General: Hiatal hernia repair Ortho: Rotator cuff repair, Arthroscopic surgery HEENT: Myringotomy (tubes), Tonsil/Adenoidectomy - Present Medications Home Medications: Ambulatory Orders Medication Instructions Recorded Confirmed Gabapentin 100 mg PO BID 11/07/15 02/07/19 Aspirin [Aspirin EC] 81 mg PO DAILY 06/06/17 02/07/19 Insulin Aspart (Vial) [NovoLOG 0 unit SUBQ .INSULINPUMP 06/06/17 02/07/19 (VIAL FOR ED USE)] Levothyroxine Sodium [Synthroid] 200 mcg PO QDAC 06/06/17 02/07/19 Lisinopril [Zestril] 20 mg PO DAILY 06/06/17 02/07/19 - Allergies Allergies/Adverse Reactions: Allergies Allergy/AdvReac Type Severity Reaction Status Date / Time meperidine HCl * Allergy Unknown Verified 02/17/19 08:56 [From Demerol] - Social History Does the pt smoke?: No Smoking Status: Never smoker Does the pt drink ETOH?: Yes Does the pt have substance abuse?: No - Immunizations Immunizations are current?: Yes - POLST Patient has POLST: No POLST Status: Full Code PD ED PE NORMAL - Vitals Vital signs reviewed: Yes (hypertensive ) - General General: Alert and oriented X 3, No acute distress, Well developed/nourished - HEENT HEENT: Atraumatic, PERRL, EOMI - Respiratory Respiratory: No respiratory distress - Derm Derm: Normal color, Warm and dry, No rash - Extremities Extremities: No deformity, No edema, No calf tenderness / cord - Neuro Neuro: Alert and oriented X 3, hub borer 2-12 intact, No motor deficit, No sensory deficit, Normal speech Eye Opening: Spontaneous Motor: Obeys Commands Verbal: Oriented GCS Score: 15 - Psych Psych: Normal mood, Normal affect Results - Vitals Vitals: Vital Signs - 24 hr 02/17/19 08:53 Temperature 36.8 C Heart Rate 95 Respiratory 18 Rate Blood Pressure 164/98 H O2 Saturation 100 Oxygen O2 Source Room air PD MEDICAL DECISION MAKING - ED course Complexity details: considered differential, d/w patient ED course: 48-year-old male with a injury to his gastrocnemius on the left side has resolved his strain. He is given a note for return to work without restriction. Departure - Departure Disposition: 01 Home, Self Care Clinical Impression: Encounter for fitness for duty examination Condition: Stable Instructions: ED Strain Muscle Ext Follow-Up: INOCENTE PALACIO MD [Primary Care Provider] -
== END 2019-02-17 09:41 | disposition home or self-care (01) ==
LOC: ED 08:42
DX: Z02.79 Encounter for issue of other medical certificate (principal); E10.9 Type 1 diabetes mellitus without complications
CPT/HCPCS: 99281; 99282

== ENCOUNTER 2019-04-21 00:27 | Emergency (ER) | payer OTHER ==
--- NOTE | 2019-04-21 00:44 | ED Physician Documentation ---
History of Present Illness - Stated complaint Stated Complaint: BECERRA/VOMITING - Chief complaint Chief Complaint: Heent - History obtained from History obtained from: Patient - Additonal information Additional information: Patient is a 48-year-old male with history of type 1 diabetes presenting with fever, headache, nausea, vomiting, and pain to left shoulder from area of cellulitis and recent abscess drainage. Patient saw his primary care physician earlier today, who performed an I&D. Patient reports that he was originally placed on an antibiotic which she believes to be Keflex prior to I&D, but since symptoms did not improve, his physician drained the abscess and placed him on another antibiotic, likely doxycycline per patient description. However, patient does not have these medications with him to confirm. Patient reports that he has taken some Tylenol at home earlier today to help reduce the fever, which has not been terribly successful. Patient was also prescribed Percocet, which she has not yet used. Patient denies stool changes, urinary changes, or other areas of cellulitis or rash. No other improving or worsening factors noted. Review of Systems Constitutional: reports: Fever GI: reports: Nausea, Vomiting. denies: Diarrhea : denies: Dysuria Skin: reports: Lesions Neurologic: reports: Headache PD PAST MEDICAL HISTORY - Past Medical History Past Medical History: Yes Cardiovascular: None Respiratory: None Neuro: Other Endocrine/Autoimmune: Type 1 diabetes, HyPOthyroidism GI: None : None HEENT: None Psych: None Musculoskeletal: None Derm: None - Past Surgical History Past Surgical History: Yes General: Hiatal hernia repair Ortho: Rotator cuff repair, Arthroscopic surgery HEENT: Myringotomy (tubes), Tonsil/Adenoidectomy - Present Medications Home Medications: Ambulatory Orders Medication Instructions Recorded Confirmed RX: Gabapentin 100 mg PO BID 11/07/15 02/07/19 RX: Aspirin [Aspirin EC] 81 mg PO DAILY 06/06/17 02/07/19 RX: Insulin Aspart (Vial) [NovoLOG 0 unit SUBQ .INSULINPUMP 06/06/17 02/07/19 (VIAL FOR ED USE)] RX: Levothyroxine Sodium 200 mcg PO QDAC 06/06/17 02/07/19 [Synthroid] RX: Lisinopril [Zestril] 20 mg PO DAILY 06/06/17 02/07/19 - Allergies Allergies/Adverse Reactions: Allergies Allergy/AdvReac Type Severity Reaction Status Date / Time meperidine HCl * Allergy Unknown Verified 04/21/19 00:38 [From Demerol] - Social History Does the pt smoke?: No Smoking Status: Never smoker Does the pt drink ETOH?: Yes Does the pt have substance abuse?: No - Immunizations Immunizations are current?: Yes - POLST Patient has POLST: No POLST Status: Full Code PD ED PE NORMAL - Vitals Vital signs reviewed: Yes - General General: Alert and oriented X 3, No acute distress, Well developed/nourished - HEENT HEENT: Atraumatic, PERRL, EOMI (No nystagmus), Moist mucous membranes, Pharynx benign - Neck Neck: Supple, no meningeal sign - Cardiac Cardiac: RRR, No murmur - Respiratory Respiratory: No respiratory distress, Clear bilaterally - Abdomen Abdomen: Soft, Non tender, Non distended - Derm Derm: Other (Approximately 2 inch circular wound to left posterior shoulder along paraspinal muscle from recent I&D with purulent drainage present and surrounding erythema with mild blistering. Tender and warm to the touch.) - Extremities Extremities: No deformity, No tenderness to palpate - Neuro Neuro: Alert and oriented X 3, No motor deficit, No sensory deficit - Psych Psych: Normal mood, Normal affect Results - Vitals Vitals: Vital Signs - 24 hr 04/21/19 04/21/19 04/21/19 00:35 01:24 01:25 Temperature 38.2 C H Heart Rate 107 H 100 Respiratory 17 17 Rate Blood Pressure 98/64 121/73 O2 Saturation 95 966 H 87 L 04/21/19 04/21/19 04/21/19 01:34 02:10 02:37 Temperature 37.9 C H Heart Rate 98 99 100 Respiratory 16 15 16 Rate Blood Pressure 146/75 H 120/65 107/62 O2 Saturation 97 98 98 04/21/19 03:16 Temperature Heart Rate 92 Respiratory 15 Rate Blood Pressure 105/59 L O2 Saturation 100 Oxygen O2 Source Nasal cannula Oxygen Flow Rate 3 - Labs Labs: Laboratory Tests 04/21/19 04/21/19 04/21/19 01:00 01:00 01:20 WBC 13.2 H RBC 4.45 L Hgb 12.1 L Hct 36.2 L MCV 81.3 MCH 27.2 MCHC 33.5 RDW 13.8 Plt Count 335 MPV 7.5 Neut # (Auto) 11.8 H Lymph # (Auto) 0.9 L [place] # (Auto) 0.4 Eos # (Auto) 0.0 Baso # (Auto) 0.0 Absolute Nucleated RBC 0.00 Nucleated RBC % 0.0 Sodium 139 Potassium 3.8 Chloride 104 Carbon Dioxide 24 Anion Gap 11.0 BUN 26 H Creatinine 1.4 H Estimated GFR (MDRD) 54 L Glucose 134 H Lactic Acid 1.2 Calcium 8.9 Total Bilirubin 0.8 AST 22 ALT 22 Alkaline Phosphatase 70 Total Protein 7.6 Albumin 3.9 Globulin 3.7 Albumin/Globulin Ratio 1.1 Lipase 19 L Urine Color Urine Clarity Urine pH Ur Specific [place] Urine Protein Urine Glucose (UA) Urine Ketones Urine Occult Blood Urine Nitrite Urine Bilirubin Urine Urobilinogen Ur Leukocyte Esterase Ur Microscopic Review Urine Culture Comments 04/21/19 04:15 WBC RBC Hgb Hct MCV MCH MCHC RDW Plt Count MPV Neut # (Auto) Lymph # (Auto) [place] # (Auto) Eos # (Auto) Baso # (Auto) Absolute Nucleated RBC Nucleated RBC % Sodium Potassium Chloride Carbon Dioxide Anion Gap BUN Creatinine Estimated GFR (MDRD) Glucose Lactic Acid Calcium Total Bilirubin AST ALT Alkaline Phosphatase Total Protein Albumin Globulin Albumin/Globulin Ratio Lipase Urine Color YELLOW Urine Clarity CLEAR Urine pH 5.5 Ur Specific [place] 1.025 Urine Protein 100 H Urine Glucose (UA) NEGATIVE Urine Ketones NEGATIVE Urine Occult Blood TRACE-LYSE Urine Nitrite NEGATIVE Urine Bilirubin NEGATIVE Urine Urobilinogen 0.2 (NORMAL) Ur Leukocyte Esterase NEGATIVE Ur Microscopic Review INDICATED Urine Culture Comments Not Reportable PD MEDICAL DECISION MAKING - ED course Complexity details: reviewed results, re-evaluated patient, considered differential, d/w patient, d/w family ED course: Patient presenting with recent I&D to left shoulder abscess with surrounding cellulitis. Patient has been on multiple antibiotics as well as prescribed pain medication for home. Patient arrives febrile and slightly tachycardic and mildly hypotensive. Do have concern for possible bacteremia, sepsis, septic shock and spread of this cellulitis further. Do not find evidence to indicate meningitis, encephalitis, pneumonia or other chest infection, intra-abdominal infection, or UTI, but will obtain screening lab work, lactate, blood cultures, urine culture, and wound culture. All cultures currently pending and screening lab work returned with mild leukocytosis but otherwise relatively unremarkable. Urinalysis also returned without indication of infection. Patient's temperature defervesced appropriately with administration of Tylenol and tachycardia and hypotension resolved with administration of IV fluids.Do not feel patient requires antibiotics at this time as he has been taking such at home and has his prescription available to him there. Do not feel patient requires further work- up or hospitalization, but can be treated with oral antibiotics at home, but discussed use of antibiotics and antipyretics at home, diet and hydration, strict return precautions, and appropriate follow-up. Patient and voiced understanding and are comfortable with discharge plan. Departure - Departure Disposition: Home, Self Care Clinical Impression: Cellulitis and abscess of trunk Condition: Good Instructions: ED Infec Skin Cellulitis Follow-Up: INOCENTE PALACIO MD [Primary Care Provider] - Comments: Please continue all home medications including antibiotics as prescribed. Recommend use of ibuprofen/Tylenol alternating every 4-6 hours for fever and pain relief control. Please do not take more than 4 g of Tylenol within 24-hour period. If using Percocet, please do not combine with Tylenol. If using Percocet regularly, recommend stool softener or laxative as this can cause constipation. Follow-up with your primary care physician in the next 2 to 3 days and return to ED sooner if experience worsening symptoms or other concerns.
[2019-04-21] MEDS ORDERED: SODIUM CHLORIDE 0.9% 1,000 ML IV ONE ×3 (00:55→03:09)
[2019-04-21] MEDS ORDERED: ONDANSETRON 4 MG/2 ML VIAL IVP STA (00:55)
[2019-04-21] MEDS ORDERED: HYDROmorphone 2 MG/ML VIAL IVP STA (00:55)
[2019-04-21] MEDS ORDERED: ACETAMINOPHEN 1,000 MG/100 ML 100 ML IV STA (00:57)
[2019-04-21 01:08] LABS: BASOPHILS % (AUTO) 0.2 %; EOSINOPHILS % (AUTO) 0.1 %; HGB - HEMOGLOBIN 12.1 g/dL (14.0-18.0); LYMPHOCYTES # (AUTO) 0.9 10^3/uL (1.5-3.5); MEAN CORPUSCULAR HEMOGLOBIN 27.2 pg (27.0-31.0); MEAN CORPUSCULAR HGB CONC 33.5 g/dL (32.0-36.0); MEAN CORPUSCULAR VOLUME 81.3 fL (80.0-94.0); MEAN PLATELET VOLUME 7.5 fL (7.4-11.4); MONOCYTES # (AUTO) 0.4 10^3/uL (0.0-1.0); MONOCYTES % (AUTO) 3.4 %; NEUTROPHILS # (AUTO) 11.8 10^3/uL (1.5-6.6); NEUTROPHILS % (AUTO) 89.3 %; PLT - PLATELET COUNT 335 10^3/uL (130-450); RED BLOOD COUNT 4.45 10^6/uL (4.70-6.10); RED CELL DISTRIBUTION WIDTH 13.8 % (12.0-15.0); WHITE BLOOD COUNT 13.2 x10^3/uL (4.8-10.8)
[2019-04-21 01:27] LABS: ALBUMIN 3.9 g/dL (3.2-5.5); ALBUMIN/GLOBULIN RATIO 1.1 (1.0-2.2); BILIRUBIN,TOTAL 0.8 mg/dL (0.2-1.0); CALCIUM 8.9 mg/dL (8.5-10.3); CREATININE 1.4 mg/dL (0.6-1.2); TOTAL PROTEIN 7.6 g/dL (6.7-8.2)
[2019-04-21 03:18] VITALS: BP 105/59
[2019-04-21 04:21] LABS: BILIRUBIN,URINE NEGATIVE (NEGATIVE); GLUCOSE, URINE (UA) NEGATIVE (NEGATIVE); KETONES,URINE (UA) NEGATIVE (NEGATIVE); LEUKOCYTE ESTERASE, URINE NEGATIVE (NEGATIVE); NITRITE,URINE NEGATIVE (NEGATIVE); OCCULT BLOOD,URINE TRACE-LYSE (NEGATIVE); PH,URINE 5.5 PH (5.0-7.5); PROTEIN,URINE 100 mg/dL (NEGATIVE); UROBILINOGEN,URINE 0.2 (NORMAL) E.U./dL (NORMAL)
[2019-04-21 04:31] LABS: CLARITY,URINE CLEAR (CLEAR)
[2019-04-21 04:46] LABS: BACTERIA,URINE None Seen /HPF (None Seen); RBC,URINE 0-5 /HPF (0-5); SQUAMOUS EPITHELIAL CELL,UR FEW Squamous (<= Few)
== END 2019-04-21 04:51 | disposition home or self-care (01) ==
LOC: ED 00:27
DX: L03.319 Cellulitis of trunk, unspecified (principal); L02.219 Cutaneous abscess of trunk, unspecified; E10.9 Type 1 diabetes mellitus without complications
CPT/HCPCS: 36415; 80053; 81001; 83605; 83690; 85025; 87040; 96361; 96365; 96375; 99283; 99284; J0131; J1170; 81003; 87086

== ENCOUNTER 2019-05-04 17:52 | Emergency (ER) | payer OTHER ==
[2019-05-04] MEDS ORDERED: SODIUM CHLORIDE 0.9% 1,000 ML IV ONE ×2 (19:21→20:06)
[2019-05-04] MEDS ORDERED: ONDANSETRON ODT 4 MG TABLET TL STA (19:22)
[2019-05-04] MEDS ORDERED: MAG HYDROX/AL HYDROX/SIMETH 30 ML UDC PO STA (19:22)
[2019-05-04 19:39] LABS: BASOPHILS # (AUTO) 0.1 10^3/uL (0.0-0.1); BASOPHILS % (AUTO) 1.2 %; EOSINOPHILS # (AUTO) 0.1 10^3/uL (0.0-0.7); EOSINOPHILS % (AUTO) 1.7 %; HGB - HEMOGLOBIN 12.4 g/dL (14.0-18.0); LYMPHOCYTES # (AUTO) 1.4 10^3/uL (1.5-3.5); LYMPHOCYTES % (AUTO) 29.9 %; MEAN CORPUSCULAR HEMOGLOBIN 27.8 pg (27.0-31.0); MEAN CORPUSCULAR HGB CONC 33.3 g/dL (32.0-36.0); MEAN CORPUSCULAR VOLUME 83.5 fL (80.0-94.0); MONOCYTES # (AUTO) 0.2 10^3/uL (0.0-1.0); MONOCYTES % (AUTO) 5.1 %; NEUTROPHILS % (AUTO) 62.1 %; PLT - PLATELET COUNT 243 10^3/uL (130-450); RED BLOOD COUNT 4.46 10^6/uL (4.70-6.10); RED CELL DISTRIBUTION WIDTH 13.4 % (12.0-15.0); WHITE BLOOD COUNT 4.8 x10^3/uL (4.8-10.8)
[2019-05-04 19:59] LABS: CALCIUM 9.6 mg/dL (8.5-10.3); CREATININE 1.5 mg/dL (0.6-1.2)
[2019-05-04] MEDS ORDERED: INSULIN REGULAR HUMAN 100 UNIT/1 ML 10 ML MDV IVP STA ×2 (20:06→21:51)
--- NOTE | 2019-05-04 20:19 | ED Physician Documentation ---
History of Present Illness - Stated complaint Stated Complaint: NEEDS FLUIDS PER DR - Chief complaint Chief Complaint: General - History obtained from History obtained from: Patient - History of Present Illness Timing: Other (nausea and poor PO intake ongoing for several days, back infection started weeks ago) Severity Comments: mild, denies pain Quality: mild nausea Radiates to: no radiation Improved by: zofran Worsened by: eating Associated symptoms: mild upper abdominal discomfort, no diarrhea, no fever. no chest pain, no sob. reports he is urinating - Additonal information Additional information: Patient sent to ED by PCP for IV fluids due to elevated creatinine. He has had an ongoing left back skin infection and had been on multiple antibiotics for this. Completed 3 different rounds of antibiotics and now is off antibiotics but has had upper abdominal burning and nausea. Reports also dizziness that he describes as vertigo. He is drinking oral fluids and eating. Tolerated a ham sandwich. States he had blood work done at PCP's office Review of Systems Ten Systems: 10 systems reviewed and negative Constitutional: denies: Fever, Chills Throat: denies: Sore throat Cardiac: denies: Chest pain / pressure, Palpitations Respiratory: denies: Dyspnea GI: reports: Abdominal Pain, Nausea. denies: Vomiting, Constipation, Diarrhea, Hematemesis, Bloody / black stool Skin: reports: Other (back abscess, healing) Neurologic: reports: Other (dizziness). denies: Generalized weakness, Focal weakness, Numbness, Confused PD PAST MEDICAL HISTORY - Past Medical History Past Medical History: Yes Cardiovascular: None Respiratory: None Neuro: Other Endocrine/Autoimmune: Type 1 diabetes, HyPOthyroidism GI: None : None HEENT: None Psych: None Musculoskeletal: None Derm: None - Past Surgical History Past Surgical History: Yes General: Hiatal hernia repair Ortho: Rotator cuff repair, Arthroscopic surgery HEENT: Myringotomy (tubes), Tonsil/Adenoidectomy - Present Medications Home Medications: Ambulatory Orders Medication Instructions Recorded Confirmed RX: Gabapentin 100 mg PO BID 11/07/15 05/04/19 RX: Aspirin [Aspirin EC] 81 mg PO DAILY 06/06/17 05/04/19 RX: Insulin Aspart (Vial) [NovoLOG 0 unit SUBQ .INSULINPUMP 06/06/17 05/04/19 (VIAL FOR ED USE)] RX: Levothyroxine Sodium 200 mcg PO QDAC 06/06/17 05/04/19 [Synthroid] RX: Lisinopril [Zestril] 20 mg PO DAILY 06/06/17 05/04/19 Ondansetron Odt [Zofran] 4 mg TL Q6H PRN #10 tablet 05/04/19 - Allergies Allergies/Adverse Reactions: Allergies Allergy/AdvReac Type Severity Reaction Status Date / Time meperidine HCl * Allergy Unknown Verified 05/04/19 18:02 [From Demerol] - Social History Does the pt smoke?: No Smoking Status: Never smoker Does the pt drink ETOH?: Yes Does the pt have substance abuse?: No - Immunizations Immunizations are current?: Yes - POLST Patient has POLST: No POLST Status: Full Code PD ED PE NORMAL - Vitals Vital signs reviewed: Yes - General General: Alert and oriented X 3, No acute distress, Well developed/nourished - HEENT HEENT: Atraumatic, Pharynx benign - Neck Neck: Supple, no meningeal sign, No JVD - Cardiac Cardiac: RRR, No murmur, No gallop, No rub - Respiratory Respiratory: No respiratory distress, Clear bilaterally - Abdomen Abdomen: Soft, Non tender, Non distended - Male Male : Deferred - Rectal Rectal: Deferred - Derm Derm: Normal color, Warm and dry, Other (left upper back healing abscess s/p I&D, no surrounding cellulitis. nontender, no edema.) - Extremities Extremities: No deformity - Neuro Neuro: Alert and oriented X 3 Eye Opening: Spontaneous Motor: Obeys Commands Verbal: Oriented GCS Score: 15 - Psych Psych: Normal mood, Normal affect Results - Vitals Vitals: Oxygen O2 Source Room air - Labs Labs: Laboratory Tests 05/04/19 05/04/19 05/04/19 19:33 19:33 20:10 WBC 4.8 RBC 4.46 L Hgb 12.4 L Hct 37.2 L MCV 83.5 MCH 27.8 MCHC 33.3 RDW 13.4 Plt Count 243 MPV 8.0 Neut # (Auto) 3.0 Lymph # (Auto) 1.4 L [place] # (Auto) 0.2 Eos # (Auto) 0.1 Baso # (Auto) 0.1 Absolute Nucleated RBC 0.00 Nucleated RBC % 0.1 Sodium 131 L Potassium 4.7 Chloride 91 L Carbon Dioxide 27 Anion Gap 13.0 BUN 31 H Creatinine 1.5 H Estimated GFR (MDRD) 50 L Glucose 584 H* POC Whole Bld Glucose Calcium 9.6 Urine Color YELLOW Urine Clarity CLEAR Urine pH 6.0 Ur Specific [place] <=1.005 Urine Protein NEGATIVE Urine Glucose (UA) >=1000 H Urine Ketones NEGATIVE Urine Occult Blood TRACE-INTA Urine Nitrite NEGATIVE Urine Bilirubin NEGATIVE Urine Urobilinogen 0.2 (NORMAL) Ur Leukocyte Esterase NEGATIVE Ur Microscopic Review NOT INDICATED Urine Culture Comments NOT INDICATED 05/04/19 22:04 WBC RBC Hgb Hct MCV MCH MCHC RDW Plt Count MPV Neut # (Auto) Lymph # (Auto) [place] # (Auto) Eos # (Auto) Baso # (Auto) Absolute Nucleated RBC Nucleated RBC % Sodium Potassium Chloride Carbon Dioxide Anion Gap BUN Creatinine Estimated GFR (MDRD) Glucose POC Whole Bld Glucose 298 H Calcium Urine Color Urine Clarity Urine pH Ur Specific [place] Urine Protein Urine Glucose (UA) Urine Ketones Urine Occult Blood Urine Nitrite Urine Bilirubin Urine Urobilinogen Ur Leukocyte Esterase Ur Microscopic Review Urine Culture Comments hyperglycemia without acidosis or anion gap. Pseudohyponatremia present mild anemia PD MEDICAL DECISION MAKING - ED course Complexity details: reviewed old records, reviewed results, re-evaluated patient, considered differential, d/w patient, d/w family ED course: ddx - dehydration, DAGOBERTO, CKD, electrolyte abnormality, hyperglycemia, DKA, HHNK 48 y/o M sent to ED from clinic for dehydration. Pt is diabetic, s/p I&D of abscess and on multiple rounds of antibiotics for this. Now has had several days of upper abdominal burning, nausea, no vomiting. But reports he is having no diarrhea no fever and is having good urine output. His abdominal exam is benign. He has hyperglycemia but no DKA. His old creatinine was 1.4 based on previous records and today is 1.5 He was given iv fluids and insulin here. Pending recheck of blood sugar. Sugar improved. His nausea improved as well. His abdominal examination is normal and he is stable for outpt f.u. Departure - Departure Disposition: 01 Home, Self Care Clinical Impression: Hyperglycemia due to type 1 diabetes mellitus, Nausea Condition: Stable Record reviewed to determine appropriate education?: Yes Instructions: Hyperglycemia Follow-Up: INOCENTE PALACIO MD [Primary Care Provider] - Prescriptions: Ondansetron Odt [Zofran] 4 mg TL Q6H PRN #10 tablet PRN Reason: Nausea / Vomiting Comments: You had some hyperglycemia today and perhaps some mild dehydration. Your labs were otherwise stable for your kidney function. Your labs improved with fluids and insulin. You can take zofran as needed for nausea and continue OTC pepcid or prilosec for stomach pain/acid reflux. Maalox may also be helpful for this and is over the counter. If vomiting or inability to tolerate fluids or no longer producing urine please return to the ED. Discharge Date/Time: 05/04/19 22:48
[2019-05-04 20:49] LABS: BILIRUBIN,URINE NEGATIVE (NEGATIVE); CLARITY,URINE CLEAR (CLEAR); GLUCOSE, URINE (UA) >=1000 mg/dL (NEGATIVE); KETONES,URINE (UA) NEGATIVE (NEGATIVE); LEUKOCYTE ESTERASE, URINE NEGATIVE (NEGATIVE); NITRITE,URINE NEGATIVE (NEGATIVE); OCCULT BLOOD,URINE TRACE-INTA (NEGATIVE); PROTEIN,URINE NEGATIVE (NEGATIVE); UROBILINOGEN,URINE 0.2 (NORMAL) E.U./dL (NORMAL)
[2019-05-04] MEDS ORDERED: LACTATED RINGERS 1,000 ML IV STA (21:45)
[2019-05-04 22:44] VITALS: BP 136/85
== END 2019-05-04 22:48 | disposition home or self-care (01) ==
LOC: ED 17:52
DX: R11.0 Nausea (principal); E10.65 Type 1 diabetes mellitus with hyperglycemia; R10.10 Upper abdominal pain, unspecified; R63.0 Anorexia; R79.89 Other specified abnormal findings of blood chemistry; L02.212 Cutaneous abscess of back [any part, except buttock and flank]; E03.9 Hypothyroidism, unspecified; Z79.4 Long term (current) use of insulin; Z79.899 Other long term (current) drug therapy
CPT/HCPCS: 36415; 80048; 81003; 85025; 96360; 96361; 99283; A9270; J1815; J7120; Q0162; 81001; 87086

== ENCOUNTER 2019-09-06 04:01 | Outpatient (CLI) | payer OTHER | END 2019-09-06 04:02 | disposition critical access hospital (66) | LOC: EMS 04:01 | PROVIDERS: ATTEND Surgery | DX: Z04.1 Encounter for examination and observation following transport accident (principal); V47.5XXA Car driver injured in collision with fixed or stationary object in traffic accident, initial encounter; Y92.414 Local residential or business street as the place of occurrence of the external cause; Y99.0 Civilian activity done for income or pay | CPT/HCPCS: A0425; A0429 ==

== ENCOUNTER 2019-09-06 04:14 | Emergency (ER) | payer OTHER ==
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
[2019-09-06 06:02] VITALS: BP 92/59
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
== END 2019-09-06 06:10 | disposition home or self-care (01) ==
LOC: EDUNIT# → ED 04:14
DX: S16.1XXA Strain of muscle, fascia and tendon at neck level, initial encounter (principal); S80.02XA Contusion of left knee, initial encounter; S80.212A Abrasion, left knee, initial encounter; V47.5XXA Car driver injured in collision with fixed or stationary object in traffic accident, initial encounter; W22.11XA Striking against or struck by driver side automobile airbag, initial encounter; Y92.410 Unspecified street and highway as the place of occurrence of the external cause; Y99.0 Civilian activity done for income or pay; M25.532 Pain in left wrist; M25.531 Pain in right wrist; M79.645 Pain in left finger(s); M79.644 Pain in right finger(s); M50.322 Other cervical disc degeneration at C5-C6 level; M47.813 Spondylosis without myelopathy or radiculopathy, cervicothoracic region; E10.9 Type 1 diabetes mellitus without complications
CPT/HCPCS: 1040M; 72040; 99282; 99283

== ENCOUNTER 2020-04-14 07:18 | Emergency (ER) | payer OTHER ==
[2020-04-14 07:30] VITALS: BP 159/87
--- NOTE | 2020-04-14 08:08 | ED Physician Documentation ---
PD HPI SKIN - Stated complaint Stated Complaint: R FOOT SWELLING - Chief complaint Chief Complaint: Ext Problem - History obtained from History obtained from: Patient - History of Present Illness Timing - onset: Last night, Yesterday Timing - duration: Hours Timing - details: Abrupt onset (he had not noticed any problems with his feet/toes in past few days, and does check feet regularly. Home from work this morning and noted sock at area of toes was wet and he saw peeling blisters on bottoms of great and 5th toes and blisters tense on other 3. No purulence and skin on peeled areas is red. Same shoes (not new). no new socks, was not walking in chemicals/plants/etc. Socks were not extendedly wet during work shift. Other foot is okay.) Location: RLE (bottoms of all toes. Foot is okay.) Quality / character: Vesicular (blistering), Swelling, Draining (clear fluid from the open blisters.). No: Painful Associated symptoms: No: Fever, Myalgias Contributing factors: Unknown. No: Exposed to medication, Exposed to soap / lotion, Recent illness Similar symptoms before: Has not had sx before Review of Systems Constitutional: denies: Fever, Chills, Myalgias Throat: denies: Sore throat Cardiac: denies: Chest pain / pressure, Palpitations Respiratory: denies: Dyspnea, Cough Skin: denies: Abrasion (s), Laceration (s) Neurologic: reports: Numbness (has poor feeling on toes/feet baseline due to neuropathy). denies: Focal weakness PD PAST MEDICAL HISTORY - Past Medical History Past Medical History: Yes Cardiovascular: None Respiratory: None Neuro: Other Endocrine/Autoimmune: Type 1 diabetes, HyPOthyroidism GI: None : None HEENT: None Psych: None Musculoskeletal: None Derm: None - Past Surgical History Past Surgical History: Yes General: Hiatal hernia repair Ortho: Rotator cuff repair, Arthroscopic surgery HEENT: Myringotomy (tubes), Tonsil/Adenoidectomy - Present Medications Home Medications: Ambulatory Orders Medication Instructions Recorded Confirmed Gabapentin 100 mg PO BID 11/07/15 09/06/19 Aspirin [Aspirin EC] 81 mg PO DAILY 06/06/17 09/06/19 Insulin Aspart (Vial) [NovoLOG 0 unit SUBQ .INSULINPUMP 06/06/17 09/06/19 (VIAL FOR ED USE)] Levothyroxine Sodium [Synthroid] 200 mcg PO QDAC 06/06/17 09/06/19 Lisinopril [Zestril] 20 mg PO DAILY 06/06/17 09/06/19 Cephalexin [Keflex] 500 mg PO TID #21 capsule 04/14/20 Mupirocin 1 applic TP TID #15 g 04/14/20 Sulfamethox/Trimeth 800/160 1 each PO BID #14 tablet 04/14/20 [Bactrim Ds 800/160] - Allergies Allergies/Adverse Reactions: Allergies Allergy/AdvReac Type Severity Reaction Status Date / Time meperidine HCl * Allergy Unknown Verified 04/14/20 07:30 [From Demerol] - Social History Does the pt smoke?: No Smoking Status: Never smoker Does the pt drink ETOH?: Yes Does the pt have substance abuse?: No - Immunizations Immunizations are current?: Yes - POLST Patient has POLST: No POLST Status: Full Code PD ED PE NORMAL - Vitals Vital signs reviewed: Yes - General General: Alert and oriented X 3, No acute distress, Well developed/nourished - HEENT HEENT: Pharynx benign - Neck Neck: Supple, no meningeal sign, No adenopathy - Cardiac Cardiac: RRR, No murmur - Respiratory Respiratory: Clear bilaterally - Derm Derm: Normal color, Warm and dry - Extremities Extremities: Other (bottoms of right toes with bullae, two unroofed revealing pink base without noted purulence. Others are tense. ) Results - Vitals Vitals: Vital Signs - 24 hr 04/14/20 07:27 Temperature 36.4 C L Heart Rate 86 Respiratory 16 Rate Blood Pressure 159/87 H O2 Saturation 100 Oxygen O2 Source Room air - Labs Labs: Microbiology 04/14/20 08:40 Wound Culture - Preliminary Toe - Right Third PD MEDICAL DECISION MAKING - ED course Complexity details: considered differential (no chemical exposure nor prolonged wetness. Abrupt onset. Presume infectious. Will cover staph/strep pending cultur e. ), d/w patient ED course: I nicked the intact bullae with scalpel tip to allow decompression and obtain fluid for culture. It is clear. Departure - Departure Disposition: 01 Home, Self Care Clinical Impression: Foot and toe(s), blister, infected, Bullous impetigo Condition: Stable Record reviewed to determine appropriate education?: Yes Prescriptions: Cephalexin [Keflex] 500 mg PO TID #21 capsule Mupirocin 1 applic TP TID #15 g Sulfamethox/Trimeth 800/160 [Bactrim Ds 800/160] 1 each PO BID #14 tablet Comments: The main concern is an infectious cause for the blistering. Since there is no obvious reason for contact dermatitis or such, we will treated as a likely impetigo (skin infection). These could be most commonly staph or strep so we will start with antibiotics for both until the culture results in a couple of days. At that point we can tailor the antibiotic choice more directly and narrow to 1 antibiotic or none if there is no bacterial growth. Meanwhile clean the area 2 or 3 times a day with soap and water gently and apply very light layer of mupirocin antibiotic ointment and just some dry dressing over it to protect the skin. Recheck if generally sick with fever vomiting progressive rash or other concerns. Otherwise a culture will result in a couple of days. Off work for couple of days. Forms: Activity restrictions Discharge Date/Time: 04/14/20 09:04
[2020-04-14] MEDS ORDERED: SULFAMETH/TRIMETH DS 800/160 MG TABLET PO STA (08:45)
[2020-04-14] MEDS ORDERED: cephALEXin 250 MG CAPSULE PO STA (08:45)
[2020-04-14] MEDS ORDERED: MUPIROCIN 2% OINT 1 GM TOP STA (08:46)
== END 2020-04-14 09:04 | disposition home or self-care (01) ==
LOC: ED 07:18
DX: L01.03 Bullous impetigo (principal); E10.9 Type 1 diabetes mellitus without complications; Z79.82 Long term (current) use of aspirin
CPT/HCPCS: 10160; 87070; 87077; 87181; 87205; 99283; 99284; A9270

== ENCOUNTER 2021-05-24 16:38 | Outpatient (CLI) | payer OTHER | END 2021-05-24 16:39 | disposition critical access hospital (66) | LOC: EMS 16:38 | DX: S97.82XA Crushing injury of left foot, initial encounter (principal); Y03.0XXA Assault by being hit or run over by motor vehicle, initial encounter; Y99.0 Civilian activity done for income or pay | CPT/HCPCS: A0425; A0429 ==

== ENCOUNTER 2021-05-24 17:06 | Emergency (ER) | payer OTHER ==
[2021-05-24 17:15] VITALS: BP 138/72
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
== END 2021-05-24 19:04 | disposition home or self-care (01) ==
LOC: EDUNIT# → ED 17:06
DX: S97.82XA Crushing injury of left foot, initial encounter (principal); Y35.891A Legal intervention involving other specified means, law enforcement official injured, initial encounter; Y99.0 Civilian activity done for income or pay; E10.9 Type 1 diabetes mellitus without complications; Z79.4 Long term (current) use of insulin
CPT/HCPCS: 99282; 99283

== ENCOUNTER 2024-01-08 17:19 | Emergency (ER) | payer OTHER ==
[2024-01-08 17:36] VITALS: BP 143/80; O2SAT 97
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
[2024-01-08] MEDS: TETANUS/DIPHTHERIA/PERTUSSIS 0.5 ML SYRINGE IM ONE (17:59)
--- NOTE | 2024-01-08 18:36 | XRAY Report ---
PROCEDURE: Ankle 3+V LT INDICATIONS: Leg injury TECHNIQUE: 3 views of the ankle were acquired. COMPARISON: None. FINDINGS: Bones: No fractures or dislocations. Ankle mortise is normally aligned. No suspicious bony lesions . Soft tissues: No tibiotalar joint effusion. Achilles tendon appears normal. Arterial vascular calci fications. IMPRESSION: No acute bony abnormality identified. Reviewed by: Adria Brice MD on 01/08/2024 6:35 PM [facility] Approved by: Adria Brice MD on 01/08/2024 6:35 PM [facility] Station ID: [id number]
--- NOTE | 2024-01-08 18:37 | XRAY Report ---
PROCEDURE: Tib/Fib LT INDICATIONS: Leg injury TECHNIQUE: 4 views of the tibia and fibula were acquired. COMPARISON: Same day left ankle radiographs. FINDINGS: Bones: No fractures or dislocations. No suspicious bony lesions. Soft tissues: No suspicious soft tissue calcifications or masses. Arterial vascular calcifications. IMPRESSION: No acute bony abnormality. Reviewed by: Adria Brice MD on 01/08/2024 6:36 PM [facility] Approved by: Adria Brice MD on 01/08/2024 6:36 PM [facility] Station ID: [id number]
== END 2024-01-08 18:01 | disposition home or self-care (01) ==
LOC: ED 17:19
DX: S80.12XA Contusion of left lower leg, initial encounter (principal); S80.812A Abrasion, left lower leg, initial encounter; V29.99XA Rider (driver) (passenger) of other motorcycle injured in unspecified traffic accident, initial encounter; Y92.410 Unspecified street and highway as the place of occurrence of the external cause; Y99.0 Civilian activity done for income or pay; E10.9 Type 1 diabetes mellitus without complications; E03.9 Hypothyroidism, unspecified; Z79.01 Long term (current) use of anticoagulants; Z79.899 Other long term (current) drug therapy; Z23 Encounter for immunization
CPT/HCPCS: 90471; 99283; 99284